=== PATIENT | male | born 1930 | race Caucasian/White ===

== ENCOUNTER 2016-12-28 18:23 | Inpatient (IN) | payer MEDICARE, MEDICAID ==
[2016-12-28 19:04] LABS: % BASOPHILS 0.2 % (0.0-2.0); % LYMPHOCYTES 15.1 % (20.0-50.0); % MONOCYTES 10.3 % (2.0-10.0); % NEUTROPHILS 71.4 % (40.0-80.0); HEMATOCRIT 32.6 % (41.0-60); HEMOGLOBIN 10.8 gm/dL (12-16); MEAN CELL VOLUME 87.4 fl (80-99); MEAN CORPUSCULAR HGB CONC 33.2 pg (28.0-36.0); MEAN PLATELET VOLUME 7.5 fl; NEUTROPHILE ABSOLUTE 4.5 Th/cmm (1.8-8.0); PLATELET COUNT 229 Th/cmm (150-400); RED BLOOD COUNT 3.72 Mil/cmm (3.80-5.80); RED CELL DISTRIBUTION WIDTH 13.4 % (11.5-20.0); WHITE BLOOD COUNT 6.2 Th/cmm (4.8-10.8)
--- NOTE | 2016-12-28 19:20 | ED Physician Chart ---
ED Chief Complaint/HPI - Patient Information Date Seen:: 12/28/16 Time Seen:: 18:30 Chief Complaint:: Agitation History of Present Illness:: onset x 2 days of agitation, aggression, and hostile behavior; no SIs, H/As, neck pain, trauma, C/P, SOB, Abd/Flank Pain, A/N/V/D/C, fever, chills, or urinary s/s Allergies:: Allergies Allergy/AdvReac Type Severity Reaction Status Date / Time No Known Allergies Allergy Verified 12/28/16 18:27 Vitals:: Vital Signs - 8 hr 12/28/16 18:31 Temp 98.2 F HR 67 RR 14 BP 106/77 O2 Sat % 100 Historian:: Patient, EMS Review:: Nurse's Note Reviewed, EMS run form Reviewed, Transfer documents Reviewed ED Review of Systems - Review of Systems General/Constitutional: Fever, No chills, No weight loss, No weakness, No diaphoresis, No edema, No loss of appetite Skin: No skin lesions, No rash, No bruising Head: No headache, No light-headedness Eyes: Acuity change, No pain, No diplopia ENT: No earache, No nasal drainage, No sore throat, No tinnitus Neck: No neck pain, No swelling, No thyromegaly, No stiffness, No mass noted Cardio Vascular: No chest pain, No palpitations, No PND, No orthopnea, No edema Pulmonary: SOB, Cough, No sputum, Wheezing GI: No nausea, No vomiting, No diarrhea, No pain, No melena, No hematochezia, No constipation, No hematemesis G/U: No dysuria, No frequency, No hematuria Musculoskeletal: No bone or joint pain, Back pain, No muscle pain Endocrine: No polyuria, No polydipsia Psychiatric: Prior psych history, Depression, Anxiety, No suicidal ideation Hematopoietic: No bruising, No lymphadenopathy Allergic/Immuno: No urticaria, No angioedema Neurological: No syncope, No focal symptoms, No weakness, No paresthesia, No headache, No seizure, No dizziness, Confusion, No vertigo ED Past Medical History - Past Medical History Obtainable: Yes Past Medical History: HTN, Asthma/COPD, Dyslipidemia Family History: Heart disease, Diabetes Melitus, HTN Social History: Non Smoker, No Alcohol, No Drug Use, Single, Care Facility Surgical History: other Psychiatricy History: Depression Medication: Reviewed Family Medical History - Family Member Mother Hx Family Cancer: No Hx Family Congestive Heart Failure: No Hx Family Hypertension: No Hx Family Diabetes: No Hx Family Seizures: No Hx Family HIV: No Hx Family COPD: No Hx Family Hepatitis: No ED Physical Exam - Physical Examination General/Constitutional: Awake, Well-developed, well-nourished, Alert, No distress, GCS 15, Non-toxic appearing, Ambulatory Head: Atraumatic Eyes: Lids, conjuctiva normal, PERRL, EOMI Skin: Nl inspection, No rash, No skin lesions, No ecchymosis, Well hydrated, No lymphadenopathy ENMT: External ears, nose nl, Nasal exam nl, Lips, teeth, gums nl Neck: Nontender, Full ROM w/o pain, No JVD, No nuchal rigidity, No bruit, No mass, No stridor Respiratory: Nl effort/Exclusion, Clear to Auscultation, No Wheeze/Rhonchi/Rales Cardio Vascular: RRR, No murmur, gallop, rubs, NL S1 S2 GI: No tenderness/rebounding/guarding, No organomegaly, No hernia, Normal BS's, Nondistended, No mass/bruits, No McBurney tenderness : No CVA tenderness Extremities: No tenderness or effusion, Full ROM, normal strength in all extremities, No edema, Normal digits & nails Neuro/Psych: Alert/oriented, DTR's symmetric, Normal sensory exam, Normal motor strength, Judgement/insight normal, Mood normal, Normal gait, No focal deficits Other Neuro/Psych comments:: + Psychomotor Agitation; no SIs Misc: Normal back, No paraspinal tenderness ED Labs/Radiology/EKG Results - Lab Results Results: Laboratory Tests 12/28/16 18:57 WBC 6.2 RBC 3.72 L Hgb 10.8 L Hct 32.6 L MCV 87.4 MCH 29.0 MCHC Differential 33.2 RDW 13.4 Plt Count 229 MPV 7.5 Neutrophils % 71.4 Lymphocytes % 15.1 L Monocytes % 10.3 H Eosinophils % 3.0 Basophils % 0.2 ED Septic Shock - . Is Septic Shock (SBP<90, OR Lactate>4 mmol\L) present?: No - <6hrs of presentation: Vital Signs: Vital Signs - 8 hr 10/18/17 18:31 Temp 98.2 F HR 67 RR 14 BP 106/77 O2 Sat % 100 ED Discharge Plan - Patient Disposition Instructions: Psychosis
[2016-12-28 19:22] LABS: ALB/GLOB RATIO 1.2 (1.0-1.8); ALKALINE PHOSPHATASE 78 U/L (34-104); ANION GAP 9.2 (7.0-16.0); BILIRUBIN,TOTAL 0.4 mg/dL (0.3-1.0); BUN - UREA NITROGEN 24 mg/dL (7-25); BUN/CREATININE RATIO 26.7; CALCIUM SERUM 8.9 mg/dL (8.6-10.3); CARBON DIOXIDE 27.8 mEq/L (21.0-31.0); CHLORIDE 101 mEq/L (98-107); CREATININE - SERUM 0.9 mg/dL (0.7-1.3); GLUCOSE 106 mg/dL (70-105); SGOT 17 U/L (13-39); SGPT/ALT 10 U/L (7-52); SODIUM SERUM 134 mEq/L (136-145)
[2016-12-28 19:27] LABS: ACETAMINOPHEN < 10.0 ug/mL (10.0-30.0); CHOLESTEROL 128 mg/dL (<200); TRIGLYCERIDES 58 mg/dL (<150)
[2016-12-28 21:36] VITALS: BP 144/79
[2016-12-28] MEDS ORDERED: Maalox 30 mL Cup PO PRN (21:41)
[2016-12-28 22:54] LABS: URINE BILIRUBIN NEGATIVE (NEGATIVE); URINE BLOOD NEGATIVE (NEGATIVE); URINE GLUCOSE (UA) NEGATIVE (NEGATIVE); URINE KETONE NEGATIVE (NEGATIVE); URINE PROTEIN NEGATIVE (NEGATIVE); URINE UROBILINOGEN 0.2 E.U./dL (0.2 - 1.0)
[2016-12-28 22:58] LABS: URINE COLOR YELLOW
[2016-12-28 22:59] LABS: URINE BACTERIA FEW /hpf (NONE SEEN); URINE EPITHELIAL CELLS OCCASIONAL /lpf (FEW); URINE RBC 0-2 /hpf (0-5); URINE WBC 0-2 /hpf (0-5)
[2016-12-28 23:15] LABS: AMPHETAMINE URINE NEGATIVE (NEGATIVE); BARBITURATES URINE NEGATIVE (NEGATIVE); METHADONE URINE NEGATIVE (NEGATIVE)
[2016-12-29] MEDS: Calcium Carb/Vit D 500 mg/200 U Tab PO SCH (09:21)
--- NOTE | 2016-12-29 11:47 | Psychosocial Evaluation ---
DATE OF SERVICE: 12/29/2016 IDENTIFYING INFORMATION: The patient is an 86-year-old male. CHIEF COMPLAINT: The patient was transferred from [facility] because of agitation. HISTORY OF PRESENT ILLNESS: The patient is a well-known case to me as I have been seeing him at [facility] for the past few months. The patient has been recently agitated, delusional, ____ screaming and yelling, and actually this morning, we had to give him medication because he was using all kind of curse words, was very agitated. He was hard to redirect. He was a poor historian. He is demented, confused, unable to participate in a meaningful conversation. PAST PSYCHIATRIC HISTORY: Dementia and agitation. FAMILY HISTORY: Unable to obtain because of psychosis. MEDICAL HISTORY: Deferred to the medical doctor. SOCIAL HISTORY: Unable to obtain because of psychosis. MENTAL STATUS EXAMINATION: The patient was appropriately dressed, not very well groomed. He was agitated, unable to participate in a meaningful conversation. Unable to tell me the date, where he is, why he is here. He has very poor insight. He seems to be responding to internal stimuli. His insight and judgment are impaired. He was able to be fed by the staff this morning, but he could not eat on his own. He slept well last night. IMPRESSION: AXIS I: Psychosis/mood disorder, nonspecified. Dementia. MEDICAL DIAGNOSES: Deferred to the medical doctor. His assets, he is accepting treatment. Negative poor coping skills. INITIAL TREATMENT PLAN: The patient was continued with medication. I have him on Ativan 0.5 mg and Ambien. I will be initiating him on Aricept, and if he continues to be agitated, I will be initiating him on antipsychotic. However, I will do that after staff sees how he is doing tomorrow, and we will continue with the patient in group therapy, milieu therapy, adjust medication as needed. JOB# [id number]
--- NOTE | 2016-12-29 19:20 | History & Physical ---
ADMIT DATE: 12/29/2016 HISTORY OF PRESENT ILLNESS: The patient is an 86-year-old male with long history of dementia, degenerative joint disease, chronic anemia, and chronic constipation, admitted to [facility] with acute agitation and aggressive behavior. The patient is a poor historian. The patient has a poor appetite. No fever, no chills, no nausea, and no vomiting. PAST MEDICAL HISTORY: Significant for dementia, chronic anemia, and degenerative joint disease. PAST SURGICAL HISTORY: No recent surgery. ALLERGIES: None. MEDICATIONS: Follow admission reconciliation. SOCIAL HISTORY: No smoking, no alcohol, and no drug. FAMILY HISTORY: Noncontributory. REVIEW OF SYSTEMS: IMMUNO SYSTEM: No history of chronic renal disorder. CARDIOVASCULAR SYSTEM: No coronary artery disease. ENDOCRINE SYSTEM: No diabetes or thyroid problem. GASTROINTESTINAL SYSTEM: Poor appetite. NEUROLOGICAL: He has history of dementia. MUSCULOSKELETAL SYSTEM: Degenerative joint disease. HEMATOLOGIC SYSTEM: He has chronic anemia. RESPIRATORY SYSTEM: No asthma. GENITOURINARY: He has no dysuria or hematuria. PHYSICAL EXAMINATION: GENERAL: He is awake, not coherent. VITAL SIGNS: Temperature 98.2, heart rate 82, and blood pressure 129/58. HEENT: Normocephalic. Pupils are reacting equal to light and accommodation. Sclerae clear. NECK: Supple. Negative for lymphadenopathy, JVD, or bruit. CHEST: Bilaterally normal. No rhonchi or wheezing. HEART: S1 and S2 normal, no gallop or rub. ABDOMEN: Soft, bowel sounds positive. EXTREMITIES: No edema. NEUROLOGIC: Awake and alert. Confused. No focal motor or sensory deficits. Cranial nerves 2-12 is intact. LABORATORY DATA: White blood count 6.2, hemoglobin 10.8, hematocrit 32.6, and platelets 229,000. Sodium , potassium 4, BUN 24, and creatinine 0.9. ASSESSMENT: 1. Anemia. 2. Degenerative joint disease. 3. Chronic constipation. 4. Dementia. PLAN: The patient admitted to the hospital under Dr. Smith's service. MEDICAL PROBLEMS TO BE ADDRESSED DURING HOSPITALIZATION: Psychosis, dementia. MEDICAL PROBLEMS ADDRESSED AT DISCHARGE: Anemia and degenerative joint disease. The patient ____ Thank you Dr. Smith for asking me to see your patient. JOB# [id number]
[2016-12-29] MEDS ORDERED: Non-Formulary Item 1 EA (Melatonin [Melatonin] 3 MG) PO SCH (21:00)
[2016-12-29] MEDS: Magnesium Hydroxide (MOM) 30 mL UDC PO PRN (21:24)
[2016-12-30] MEDS: Multivitamin w/ Minerals Tab PO SCH (10:03)
[2016-12-30] MEDS: Calcium Carb/Vit D 500 mg/200 U Tab PO SCH (10:03)
[2016-12-30] MEDS ORDERED: Calcium Carb/Vit D 500 mg/200 U Tab PO SCH (12:00)
--- NOTE | 2016-12-30 20:46 | Internal Medicine Prog Note ---
Internal Medicine Subjective - Subjective Patient seen and examined:: with staff (HE IS EATING BETTER.) Patient is:: awake, in wheelchair, confused Per staff patient has:: no adverse event Internal Medicine Objective - Results Result Diagrams: 12/28/16 18:57 12/28/16 18:57 Recent Labs: Laboratory Last Values WBC 6.2 Th/cmm (4.8-10.8) 12/28/16 18:57 RBC 3.72 Mil/cmm (3.80-5.80) L 12/28/16 18:57 Hgb 10.8 gm/dL (12-16) L 12/28/16 18:57 Hct 32.6 % (41.0-60) L 12/28/16 18:57 MCV 87.4 fl (80-99) 12/28/16 18:57 MCH 29.0 pg (27.0-31.0) 12/28/16 18:57 MCHC Differential 33.2 pg (28.0-36.0) 12/28/16 18:57 RDW 13.4 % (11.5-20.0) 12/28/16 18:57 Plt Count 229 Th/cmm (150-400) 12/28/16 18:57 MPV 7.5 fl 12/28/16 18:57 Neutrophils % 71.4 % (40.0-80.0) 12/28/16 18:57 Lymphocytes % 15.1 % (20.0-50.0) L 12/28/16 18:57 Monocytes % 10.3 % (2.0-10.0) H 12/28/16 18:57 Eosinophils % 3.0 % (0.0-5.0) 12/28/16 18:57 Basophils % 0.2 % (0.0-2.0) 12/28/16 18:57 Sodium 134 mEq/L (136-145) L 12/28/16 18:57 Potassium 4.0 mEq/L (3.5-5.1) 12/28/16 18:57 Chloride 101 mEq/L (98-107) 12/28/16 18:57 Carbon Dioxide 27.8 mEq/L (21.0-31.0) 12/28/16 18:57 Anion Gap 9.2 (7.0-16.0) 12/28/16 18:57 BUN 24 mg/dL (7-25) 12/28/16 18:57 Creatinine 0.9 mg/dL (0.7-1.3) 18 18:57 Est GFR ( Amer) TNP 12/28/16 18:57 Est GFR (Non-Af Amer) TNP 12/28/16 18:57 BUN/Creatinine Ratio 26.7 12/28/16 18:57 Glucose 106 mg/dL (70-105) H 12/28/16 18:57 Hemoglobin A1c % 5.6 % (4.0-6.0) 12/28/16 18:57 Calcium 8.9 mg/dL (8.6-10.3) 12/28/16 18:57 Total Bilirubin 0.4 mg/dL (0.3-1.0) 12/28/16 18:57 AST 17 U/L (13-39) 12/28/16 18:57 ALT 10 U/L (7-52) 12/28/16 18:57 Alkaline Phosphatase 78 U/L (34-104) 12/28/16 18:57 Total Protein 6.9 gm/dL (6.0-8.3) 12/28/16 18:57 Albumin 3.7 gm/dL (4.2-5.5) L 12/28/16 18:57 Globulin 3.2 gm/dL 12/28/16 18:57 Albumin/Globulin Ratio 1.2 (1.0-1.8) 18 18:57 Triglycerides 58 mg/dL (<150) 12/28/16 18:57 Cholesterol 128 mg/dL (<200) 18 18:57 LDL Cholesterol Direct 73 mg/dL (75-193) L 18 18:57 HDL Cholesterol 46 mg/dL (23-92) 12/28/16 18:57 TSH 1.98 uIU/ml (0.34-5.60) 18 18:57 Urine Source CLEAN C 12/28/16 19:56 Urine Color YELLOW 12/28/16 19:56 Urine Clarity CLEAR (CLEAR) 12/28/16 19:56 Urine pH 6.0 (4.6 - 8.0) 12/28/16 19:56 Ur Specific [place] 1.015 (1.005-1.030) 12/28/16 19:56 Urine Protein NEGATIVE mg/dL (NEGATIVE) 12/28/16 19:56 Urine Glucose (UA) NEGATIVE mg/dL (NEGATIVE) 12/28/16 19:56 Urine Ketones NEGATIVE mg/dL (NEGATIVE) 12/28/16 19:56 Urine Blood NEGATIVE (NEGATIVE) 12/28/16 19:56 Urine Nitrate NEGATIVE (NEGATIVE) 12/28/16 19:56 Urine Bilirubin NEGATIVE (NEGATIVE) 12/28/16 19:56 Urine Urobilinogen 0.2 E.U./dL (0.2 - 1.0) 12/28/16 19:56 Ur Leukocyte Esterase NEGATIVE (NEGATIVE) 12/28/16 19:56 Urine RBC 0-2 /hpf (0-5) H 12/28/16 19:56 Urine WBC 0-2 /hpf (0-5) 12/28/16 19:56 Ur Epithelial Cells OCCASIONAL /lpf (FEW) 12/28/16 19:56 Urine Bacteria FEW /hpf (NONE SEEN) 12/28/16 19:56 Salicylates < 25.0 mg/L (30.0-100.0) L 12/28/16 18:57 Urine Opiates Screen NEGATIVE (NEGATIVE) 12/28/16 19:56 Urine Methadone Screen NEGATIVE (NEGATIVE) 12/28/16 19:56 Acetaminophen < 10.0 ug/mL (10.0-30.0) L 12/28/16 18:57 Ur Barbiturates Screen NEGATIVE (NEGATIVE) 12/28/16 19:56 Ur Tricyclics Screen NEGATIVE (NEGATIVE) 12/28/16 19:56 Ur Phencyclidine Scrn NEGATIVE (NEGATIVE) 12/28/16 19:56 Amphetamines Screen NEGATIVE (NEGATIVE) 12/28/16 19:56 U Methamphetamines Scrn NEGATIVE (NEGATIVE) 12/28/16 19:56 U Benzodiazepines Scrn NEGATIVE (NEGATIVE) 12/28/16 19:56 U Cocaine Metab Screen NEGATIVE (NEGATIVE) 12/28/16 19:56 U Cannabinoids Screen NEGATIVE (NEGATIVE) 12/28/16 19:56 Ethyl Alcohol < 10 mg/dL (0-10) 12/28/16 18:57 - Physical Exam Vitals and I&O: Vital Signs Temp 97.9 F 12/30/16 20:00 Pulse 96 12/30/16 20:00 Resp 20 12/30/16 20:00 BP 108/54 12/30/16 20:00 Pulse Ox 95 12/30/16 20:00 Active Medications: Current Medications Acetaminophen (Tylenol) 650 mg PO Q4HR PRN PRN Reason: Pain (Mild) Stop: 02/27/17 17:47 Al Hydrox/Mg Hydrox/Simethicone (Maalox) 30 ml PO Q6H PRN PRN Reason: Dyspepsia Stop: 02/26/17 21:40 Calcium/Vitamin D (Oscal W/Vitamin D) 1 tab PO DAILY ISABEL Stop: 02/27/17 08:59 Last Admin: 12/30/16 10:03 Dose: 1 tab Cholecalciferol (Vitamin D3) 1,000 iu PO DAILY ISABEL Stop: 02/27/17 08:59 Last Admin: 12/30/16 10:03 Dose: 1,000 iu Docusate Sodium (Colace) 100 mg PO DAILY ISABEL Stop: 02/27/17 08:59 Last Admin: 12/30/16 10:03 Dose: 100 mg Donepezil HCl (Aricept) 5 mg PO HS ISABEL Stop: 02/27/17 20:59 Last Admin: 12/30/16 20:16 Dose: 5 mg Lorazepam (Ativan) 0.5 mg PO Q6HR PRN; Protocol PRN Reason: Agitation Stop: 02/28/17 10:56 Last Admin: 12/30/16 11:18 Dose: 0.5 mg Magnesium Hydroxide (Milk Of Magnesia) 30 ml PO HS PRN PRN Reason: Constipation Stop: 02/26/17 21:40 Last Admin: 12/29/16 21:24 Dose: 30 ml Megestrol Acetate (Megace) 400 mg PO BID ISABEL PRN Reason: Protocol Stop: 02/28/17 08:59 Last Admin: 12/30/16 18:11 Dose: 400 mg Risperidone (Risperdal) 0.25 mg PO BID ISABEL PRN Reason: Protocol Stop: 02/28/17 11:59 Last Admin: 12/30/16 18:11 Dose: 0.25 mg Zolpidem Tartrate (Ambien) 5 mg PO HS PRN PRN Reason: Insomnia Stop: 02/26/17 21:40 Last Admin: 12/30/16 00:51 Dose: 5 mg General: demented HEENT: NC/AT, PERRLA, EOMI, anicteric sclerae, throat clear Neck: Supple, No JVD, No thyromegaly, +2 carotid pulse wo bruit, No LAD Lungs: CTAB Cardiovascular: RRR, Normal S1, Normal S2, without murmur Abdomen: soft, non-tender, non-distended Extremities: clear Neurological: no change Internal Medicine Assmt/Plan - Assessment Assessment: 1.ANEMIA 2.DJD. 3.CONSTIPATION. 4.DEMENTIA. - Plan Plan: CONTINUE ON CURRENT MEDICATION AND DIET.
--- NOTE | 2016-12-31 00:33 | Progress Notes ---
DATE: 12/30/2016 Case was discussed with staff of the patient, reviewed records. The patient continues to be yelling and screaming. Continues to have poor insight. Continues to be unable to make safe plan for self-care. Continues to be unpredictable and impulsive, needing redirection. I will be initiating a small dose of Risperdal on the patient. He has no known drug allergies. I am going to initiate him on 0.25 mg twice a day. He is psychotic and responding to internal stimuli. I tried to discuss the side effects of the medication. We will continue to work with the patient in group therapy, milieu therapy, and adjust medication as needed. JOB# [id number]
[2016-12-31] MEDS: Calcium Carb/Vit D 500 mg/200 U Tab PO SCH (08:16)
[2016-12-31] MEDS: Multivitamin w/ Minerals Tab PO SCH (08:17)
--- NOTE | 2016-12-31 16:10 | Internal Medicine Prog Note ---
Internal Medicine Subjective - Subjective Service Date: 12/31/16 Patient seen and examined:: with staff (HE IS DOING WELL.) Patient is:: awake, in wheelchair, confused Per staff patient has:: no adverse event Internal Medicine Objective - Results Result Diagrams: 12/28/16 18:57 12/28/16 18:57 Recent Labs: Laboratory Last Values WBC 6.2 Th/cmm (4.8-10.8) 12/28/16 18:57 RBC 3.72 Mil/cmm (3.80-5.80) L 12/28/16 18:57 Hgb 10.8 gm/dL (12-16) L 12/28/16 18:57 Hct 32.6 % (41.0-60) L 12/28/16 18:57 MCV 87.4 fl (80-99) 12/28/16 18:57 MCH 29.0 pg (27.0-31.0) 12/28/16 18:57 MCHC Differential 33.2 pg (28.0-36.0) 12/28/16 18:57 RDW 13.4 % (11.5-20.0) 12/28/16 18:57 Plt Count 229 Th/cmm (150-400) 12/28/16 18:57 MPV 7.5 fl 12/28/16 18:57 Neutrophils % 71.4 % (40.0-80.0) 12/28/16 18:57 Lymphocytes % 15.1 % (20.0-50.0) L 12/28/16 18:57 Monocytes % 10.3 % (2.0-10.0) H 12/28/16 18:57 Eosinophils % 3.0 % (0.0-5.0) 12/28/16 18:57 Basophils % 0.2 % (0.0-2.0) 12/28/16 18:57 Sodium 134 mEq/L (136-145) L 12/28/16 18:57 Potassium 4.0 mEq/L (3.5-5.1) 12/28/16 18:57 Chloride 101 mEq/L (98-107) 12/28/16 18:57 Carbon Dioxide 27.8 mEq/L (21.0-31.0) 12/28/16 18:57 Anion Gap 9.2 (7.0-16.0) 12/28/16 18:57 BUN 24 mg/dL (7-25) 12/28/16 18:57 Creatinine 0.9 mg/dL (0.7-1.3) 18 18:57 Est GFR ( Amer) TNP 12/28/16 18:57 Est GFR (Non-Af Amer) TNP 12/28/16 18:57 BUN/Creatinine Ratio 26.7 12/28/16 18:57 Glucose 106 mg/dL (70-105) H 12/28/16 18:57 Hemoglobin A1c % 5.6 % (4.0-6.0) 12/28/16 18:57 Calcium 8.9 mg/dL (8.6-10.3) 12/28/16 18:57 Total Bilirubin 0.4 mg/dL (0.3-1.0) 12/28/16 18:57 AST 17 U/L (13-39) 12/28/16 18:57 ALT 10 U/L (7-52) 12/28/16 18:57 Alkaline Phosphatase 78 U/L (34-104) 12/28/16 18:57 Total Protein 6.9 gm/dL (6.0-8.3) 12/28/16 18:57 Albumin 3.7 gm/dL (4.2-5.5) L 12/28/16 18:57 Globulin 3.2 gm/dL 12/28/16 18:57 Albumin/Globulin Ratio 1.2 (1.0-1.8) 12/28/16 18:57 Triglycerides 58 mg/dL (<150) 12/28/16 18:57 Cholesterol 128 mg/dL (<200) 1817 18:57 LDL Cholesterol Direct 73 mg/dL (75-193) L 12/28/16 18:57 HDL Cholesterol 46 mg/dL (23-92) 12/28/16 18:57 TSH 1.98 uIU/ml (0.34-5.60) 1817 18:57 Urine Source CLEAN C 12/28/16 19:56 Urine Color YELLOW 12/28/16 19:56 Urine Clarity CLEAR (CLEAR) 12/28/16 19:56 Urine pH 6.0 (4.6 - 8.0) 12/28/16 19:56 Ur Specific [place] 1.015 (1.005-1.030) 12/28/16 19:56 Urine Protein NEGATIVE mg/dL (NEGATIVE) 12/28/16 19:56 Urine Glucose (UA) NEGATIVE mg/dL (NEGATIVE) 12/28/16 19:56 Urine Ketones NEGATIVE mg/dL (NEGATIVE) 12/28/16 19:56 Urine Blood NEGATIVE (NEGATIVE) 12/28/16 19:56 Urine Nitrate NEGATIVE (NEGATIVE) 12/28/16 19:56 Urine Bilirubin NEGATIVE (NEGATIVE) 12/28/16 19:56 Urine Urobilinogen 0.2 E.U./dL (0.2 - 1.0) 12/28/16 19:56 Ur Leukocyte Esterase NEGATIVE (NEGATIVE) 12/28/16 19:56 Urine RBC 0-2 /hpf (0-5) H 12/28/16 19:56 Urine WBC 0-2 /hpf (0-5) 12/28/16 19:56 Ur Epithelial Cells OCCASIONAL /lpf (FEW) 12/28/16 19:56 Urine Bacteria FEW /hpf (NONE SEEN) 12/28/16 19:56 Salicylates < 25.0 mg/L (30.0-100.0) L 12/28/16 18:57 Urine Opiates Screen NEGATIVE (NEGATIVE) 12/28/16 19:56 Urine Methadone Screen NEGATIVE (NEGATIVE) 12/28/16 19:56 Acetaminophen < 10.0 ug/mL (10.0-30.0) L 12/28/16 18:57 Ur Barbiturates Screen NEGATIVE (NEGATIVE) 12/28/16 19:56 Ur Tricyclics Screen NEGATIVE (NEGATIVE) 12/28/16 19:56 Ur Phencyclidine Scrn NEGATIVE (NEGATIVE) 12/28/16 19:56 Amphetamines Screen NEGATIVE (NEGATIVE) 12/28/16 19:56 U Methamphetamines Scrn NEGATIVE (NEGATIVE) 12/28/16 19:56 U Benzodiazepines Scrn NEGATIVE (NEGATIVE) 12/28/16 19:56 U Cocaine Metab Screen NEGATIVE (NEGATIVE) 12/28/16 19:56 U Cannabinoids Screen NEGATIVE (NEGATIVE) 12/28/16 19:56 Ethyl Alcohol < 10 mg/dL (0-10) 12/28/16 18:57 RPR NONREACTIVE (NONREACTIVE) 12/28/16 18:57 - Physical Exam Vitals and I&O: Vital Signs Temp 98.7 F 12/31/16 06:56 Pulse 66 12/31/16 06:56 Resp 20 12/31/16 08:00 BP 112/67 12/31/16 06:56 Pulse Ox 95 12/31/16 06:56 Active Medications: Current Medications Acetaminophen (Tylenol) 650 mg PO Q4HR PRN PRN Reason: Pain (Mild) Stop: 02/27/17 17:47 Al Hydrox/Mg Hydrox/Simethicone (Maalox) 30 ml PO Q6H PRN PRN Reason: Dyspepsia Stop: 02/26/17 21:40 Calcium/Vitamin D (Oscal W/Vitamin D) 1 tab PO DAILY ISABEL Stop: 02/27/17 08:59 Last Admin: 12/31/16 08:16 Dose: 1 tab Cholecalciferol (Vitamin D3) 1,000 iu PO DAILY ISABEL Stop: 02/27/17 08:59 Last Admin: 12/31/16 08:16 Dose: 1,000 iu Docusate Sodium (Colace) 100 mg PO DAILY ISABEL Stop: 02/27/17 08:59 Last Admin: 12/31/16 08:16 Dose: 100 mg Donepezil HCl (Aricept) 5 mg PO HS ISABEL Stop: 02/27/17 20:59 Last Admin: 12/30/16 20:16 Dose: 5 mg Lorazepam (Ativan) 1 mg PO Q6HR PRN; Protocol PRN Reason: Agitation Stop: 02/28/17 10:56 Magnesium Hydroxide (Milk Of Magnesia) 30 ml PO HS PRN PRN Reason: Constipation Stop: 02/26/17 21:40 Last Admin: 12/29/16 21:24 Dose: 30 ml Megestrol Acetate (Megace) 400 mg PO BID ISABEL PRN Reason: Protocol Stop: 02/28/17 08:59 Last Admin: 12/31/16 08:16 Dose: 400 mg Risperidone (Risperdal) 0.25 mg PO BID ISABEL PRN Reason: Protocol Stop: 02/28/17 11:59 Last Admin: 12/31/16 08:17 Dose: 0.25 mg Zolpidem Tartrate (Ambien) 5 mg PO HS PRN PRN Reason: Insomnia Stop: 02/26/17 21:40 Last Admin: 12/30/16 00:51 Dose: 5 mg General: demented HEENT: NC/AT, PERRLA, EOMI, anicteric sclerae, throat clear Neck: Supple, No JVD, No thyromegaly, +2 carotid pulse wo bruit, No LAD Lungs: CTAB Cardiovascular: RRR, Normal S1, Normal S2, without murmur Abdomen: soft, non-tender, non-distended Extremities: clear Neurological: no change Internal Medicine Assmt/Plan - Assessment Assessment: 1.ANEMIA 2.DJD. 3.CONSTIPATION. 4.DEMENTIA. - Plan Plan: CONTINUE ON CURRENT MEDICATION AND DIET.
--- NOTE | 2016-12-31 17:20 | Progress Notes ---
DATE: SUBJECTIVE: The patient was seen, chart reviewed, discussed with staff. The patient with continued screaming episodes, rambling nonsensically. The patient states he does not know why he is here. The patient was very aggressive when he came to the unit. Dr. Smith saw the patient yesterday noting that the patient remains unpredictable, impulsive, still with yelling and screaming episodes. Dr. Smith did initiate medications which were reviewed. No side effects noted. The patient is not a good historian, not really telling me where he is or why he is here. ASSESSMENT: The patient remains symptomatic, still yelling and screaming episodes, still requiring psychiatric hospitalization given his ongoing and acute symptoms. PLAN: We will continue to monitor. Medications were reviewed. We will follow up. JOB# [id number]
[2017-01-01] MEDS: Calcium Carb/Vit D 500 mg/200 U Tab PO SCH (09:49)
[2017-01-01] MEDS: Multivitamin w/ Minerals Tab PO SCH (09:49)
--- NOTE | 2017-01-01 12:24 | Progress Notes ---
DATE: SUBJECTIVE: The patient seen, chart reviewed, discussed with staff. The patient noted to be agitated, delusional, screaming, yelling, upon presentation still noted to be hyperverbal, screaming for help. It is unclear how staff can help him as he is not expressing why, still rambling nonsensically, continued screaming episodes were noted. The patient noted to be unpredictable, impulsive. The patient needing quite a bit of prompting, redirection. Medications were noted on the computer. The patient with poor insight, still with ongoing symptoms. ASSESSMENT: The patient remains symptomatic, not safe for a lower level of care. Currently on Risperdal, seems to be tolerating well. PLAN: We will continue to monitor and titrate medications. JOB# [id number]
--- NOTE | 2017-01-01 17:52 | Internal Medicine Prog Note ---
Internal Medicine Subjective - Subjective Service Date: 01/01/17 Patient seen and examined:: without staff Patient is:: awake, in wheelchair, confused Per staff patient has:: no adverse event Internal Medicine Objective - Results Result Diagrams: 12/28/16 18:57 12/28/16 18:57 Recent Labs: Laboratory Last Values WBC 6.2 Th/cmm (4.8-10.8) 12/28/16 18:57 RBC 3.72 Mil/cmm (3.80-5.80) L 12/28/16 18:57 Hgb 10.8 gm/dL (12-16) L 12/28/16 18:57 Hct 32.6 % (41.0-60) L 12/28/16 18:57 MCV 87.4 fl (80-99) 12/28/16 18:57 MCH 29.0 pg (27.0-31.0) 12/28/16 18:57 MCHC Differential 33.2 pg (28.0-36.0) 12/28/16 18:57 RDW 13.4 % (11.5-20.0) 12/28/16 18:57 Plt Count 229 Th/cmm (150-400) 12/28/16 18:57 MPV 7.5 fl 12/28/16 18:57 Neutrophils % 71.4 % (40.0-80.0) 12/28/16 18:57 Lymphocytes % 15.1 % (20.0-50.0) L 12/28/16 18:57 Monocytes % 10.3 % (2.0-10.0) H 12/28/16 18:57 Eosinophils % 3.0 % (0.0-5.0) 12/28/16 18:57 Basophils % 0.2 % (0.0-2.0) 12/28/16 18:57 Sodium 134 mEq/L (136-145) L 12/28/16 18:57 Potassium 4.0 mEq/L (3.5-5.1) 12/28/16 18:57 Chloride 101 mEq/L (98-107) 12/28/16 18:57 Carbon Dioxide 27.8 mEq/L (21.0-31.0) 12/28/16 18:57 Anion Gap 9.2 (7.0-16.0) 12/28/16 18:57 BUN 24 mg/dL (7-25) 17 18:57 Creatinine 0.9 mg/dL (0.7-1.3) 12/28/16 18:57 Est GFR ( Amer) TNP 12/28/16 18:57 Est GFR (Non-Af Amer) TNP 12/28/16 18:57 BUN/Creatinine Ratio 26.7 12/28/16 18:57 Glucose 106 mg/dL (70-105) H 12/28/16 18:57 Hemoglobin A1c % 5.6 % (4.0-6.0) 12/28/16 18:57 Calcium 8.9 mg/dL (8.6-10.3) 12/28/16 18:57 Total Bilirubin 0.4 mg/dL (0.3-1.0) 12/28/16 18:57 AST 17 U/L (13-39) 12/28/16 18:57 ALT 10 U/L (7-52) 12/28/16 18:57 Alkaline Phosphatase 78 U/L (34-104) 12/28/16 18:57 Total Protein 6.9 gm/dL (6.0-8.3) 12/28/16 18:57 Albumin 3.7 gm/dL (4.2-5.5) L 12/28/16 18:57 Globulin 3.2 gm/dL 18 18:57 Albumin/Globulin Ratio 1.2 (1.0-1.8) 18 18:57 Triglycerides 58 mg/dL (<150) 12/28/16 18:57 Cholesterol 128 mg/dL (<200) 1817 18:57 LDL Cholesterol Direct 73 mg/dL (75-193) L 1817 18:57 HDL Cholesterol 46 mg/dL (23-92) 18 18:57 TSH 1.98 uIU/ml (0.34-5.60) 18 18:57 Urine Source CLEAN C 12/28/16 19:56 Urine Color YELLOW 12/28/16 19:56 Urine Clarity CLEAR (CLEAR) 12/28/16 19:56 Urine pH 6.0 (4.6 - 8.0) 12/28/16 19:56 Ur Specific [place] 1.015 (1.005-1.030) 12/28/16 19:56 Urine Protein NEGATIVE mg/dL (NEGATIVE) 12/28/16 19:56 Urine Glucose (UA) NEGATIVE mg/dL (NEGATIVE) 12/28/16 19:56 Urine Ketones NEGATIVE mg/dL (NEGATIVE) 12/28/16 19:56 Urine Blood NEGATIVE (NEGATIVE) 12/28/16 19:56 Urine Nitrate NEGATIVE (NEGATIVE) 12/28/16 19:56 Urine Bilirubin NEGATIVE (NEGATIVE) 12/28/16 19:56 Urine Urobilinogen 0.2 E.U./dL (0.2 - 1.0) 12/28/16 19:56 Ur Leukocyte Esterase NEGATIVE (NEGATIVE) 12/28/16 19:56 Urine RBC 0-2 /hpf (0-5) H 12/28/16 19:56 Urine WBC 0-2 /hpf (0-5) 12/28/16 19:56 Ur Epithelial Cells OCCASIONAL /lpf (FEW) 12/28/16 19:56 Urine Bacteria FEW /hpf (NONE SEEN) 12/28/16 19:56 Salicylates < 25.0 mg/L (30.0-100.0) L 12/28/16 18:57 Urine Opiates Screen NEGATIVE (NEGATIVE) 12/28/16 19:56 Urine Methadone Screen NEGATIVE (NEGATIVE) 12/28/16 19:56 Acetaminophen < 10.0 ug/mL (10.0-30.0) L 12/28/16 18:57 Ur Barbiturates Screen NEGATIVE (NEGATIVE) 12/28/16 19:56 Ur Tricyclics Screen NEGATIVE (NEGATIVE) 12/28/16 19:56 Ur Phencyclidine Scrn NEGATIVE (NEGATIVE) 12/28/16 19:56 Amphetamines Screen NEGATIVE (NEGATIVE) 12/28/16 19:56 U Methamphetamines Scrn NEGATIVE (NEGATIVE) 12/28/16 19:56 U Benzodiazepines Scrn NEGATIVE (NEGATIVE) 12/28/16 19:56 U Cocaine Metab Screen NEGATIVE (NEGATIVE) 12/28/16 19:56 U Cannabinoids Screen NEGATIVE (NEGATIVE) 12/28/16 19:56 Ethyl Alcohol < 10 mg/dL (0-10) 12/28/16 18:57 RPR NONREACTIVE (NONREACTIVE) 12/28/16 18:57 - Physical Exam Vitals and I&O: Vital Signs Temp 97.9 F 01/01/17 06:13 Pulse 87 01/01/17 06:13 Resp 18 01/01/17 06:13 BP 103/56 01/01/17 06:13 Pulse Ox 97 01/01/17 06:13 Active Medications: Current Medications Acetaminophen (Tylenol) 650 mg PO Q4HR PRN PRN Reason: Pain (Mild) Stop: 02/27/17 17:47 Al Hydrox/Mg Hydrox/Simethicone (Maalox) 30 ml PO Q6H PRN PRN Reason: Dyspepsia Stop: 02/26/17 21:40 Calcium/Vitamin D (Oscal W/Vitamin D) 1 tab PO DAILY ISABEL Stop: 02/27/17 08:59 Last Admin: 01/01/17 09:49 Dose: 1 tab Cholecalciferol (Vitamin D3) 1,000 iu PO DAILY ISABEL Stop: 02/27/17 08:59 Last Admin: 01/01/17 09:50 Dose: 1,000 iu Docusate Sodium (Colace) 100 mg PO DAILY ISABEL Stop: 02/27/17 08:59 Last Admin: 01/01/17 09:49 Dose: 100 mg Donepezil HCl (Aricept) 5 mg PO HS ISABEL Stop: 02/27/17 20:59 Last Admin: 12/31/16 21:07 Dose: 5 mg Lorazepam (Ativan) 1 mg PO Q6HR PRN; Protocol PRN Reason: Agitation Stop: 02/28/17 10:56 Last Admin: 01/01/17 17:13 Dose: 1 mg Magnesium Hydroxide (Milk Of Magnesia) 30 ml PO HS PRN PRN Reason: Constipation Stop: 02/26/17 21:40 Last Admin: 12/29/16 21:24 Dose: 30 ml Megestrol Acetate (Megace) 400 mg PO BID ISABEL PRN Reason: Protocol Stop: 02/28/17 08:59 Last Admin: 01/01/17 17:13 Dose: 400 mg Risperidone (Risperdal) 0.25 mg PO BID ISABEL PRN Reason: Protocol Stop: 02/28/17 11:59 Last Admin: 01/01/17 17:13 Dose: 0.25 mg Zolpidem Tartrate (Ambien) 5 mg PO HS PRN PRN Reason: Insomnia Stop: 02/26/17 21:40 Last Admin: 12/31/16 21:08 Dose: 5 mg General: demented HEENT: NC/AT, PERRLA, EOMI, anicteric sclerae, throat clear Neck: Supple, No JVD, No thyromegaly, +2 carotid pulse wo bruit, No LAD Lungs: CTAB Cardiovascular: RRR, Normal S1, Normal S2, without murmur Abdomen: soft, non-tender, non-distended Extremities: clear Neurological: no change Internal Medicine Assmt/Plan - Assessment Assessment: 1.ANEMIA 2.DJD. 3.CONSTIPATION. 4.DEMENTIA. - Plan Plan: CONTINUE ON CURRENT MEDICATION AND DIET.
[2017-01-02] MEDS: Multivitamin w/ Minerals Tab PO SCH (09:15)
[2017-01-02] MEDS: Calcium Carb/Vit D 500 mg/200 U Tab PO SCH (09:15)
--- NOTE | 2017-01-02 17:34 | Internal Medicine Prog Note ---
Internal Medicine Subjective - Subjective Service Date: 01/02/17 Patient seen and examined:: without staff Patient is:: awake, in wheelchair, confused Per staff patient has:: no adverse event Internal Medicine Objective - Results Result Diagrams: 12/28/16 18:57 12/28/16 18:57 Recent Labs: Laboratory Last Values WBC 6.2 Th/cmm (4.8-10.8) 12/28/16 18:57 RBC 3.72 Mil/cmm (3.80-5.80) L 12/28/16 18:57 Hgb 10.8 gm/dL (12-16) L 12/28/16 18:57 Hct 32.6 % (41.0-60) L 12/28/16 18:57 MCV 87.4 fl (80-99) 12/28/16 18:57 MCH 29.0 pg (27.0-31.0) 12/28/16 18:57 MCHC Differential 33.2 pg (28.0-36.0) 12/28/16 18:57 RDW 13.4 % (11.5-20.0) 12/28/16 18:57 Plt Count 229 Th/cmm (150-400) 12/28/16 18:57 MPV 7.5 fl 12/28/16 18:57 Neutrophils % 71.4 % (40.0-80.0) 12/28/16 18:57 Lymphocytes % 15.1 % (20.0-50.0) L 12/28/16 18:57 Monocytes % 10.3 % (2.0-10.0) H 12/28/16 18:57 Eosinophils % 3.0 % (0.0-5.0) 12/28/16 18:57 Basophils % 0.2 % (0.0-2.0) 12/28/16 18:57 Sodium 134 mEq/L (136-145) L 12/28/16 18:57 Potassium 4.0 mEq/L (3.5-5.1) 12/28/16 18:57 Chloride 101 mEq/L (98-107) 12/28/16 18:57 Carbon Dioxide 27.8 mEq/L (21.0-31.0) 12/28/16 18:57 Anion Gap 9.2 (7.0-16.0) 12/28/16 18:57 BUN 24 mg/dL (7-25) 17 18:57 Creatinine 0.9 mg/dL (0.7-1.3) 12/28/16 18:57 Est GFR ( Amer) TNP 12/28/16 18:57 Est GFR (Non-Af Amer) TNP 12/28/16 18:57 BUN/Creatinine Ratio 26.7 12/28/16 18:57 Glucose 106 mg/dL (70-105) H 12/28/16 18:57 Hemoglobin A1c % 5.6 % (4.0-6.0) 12/28/16 18:57 Calcium 8.9 mg/dL (8.6-10.3) 12/28/16 18:57 Total Bilirubin 0.4 mg/dL (0.3-1.0) 12/28/16 18:57 AST 17 U/L (13-39) 12/28/16 18:57 ALT 10 U/L (7-52) 12/28/16 18:57 Alkaline Phosphatase 78 U/L (34-104) 12/28/16 18:57 Total Protein 6.9 gm/dL (6.0-8.3) 12/28/16 18:57 Albumin 3.7 gm/dL (4.2-5.5) L 12/28/16 18:57 Globulin 3.2 gm/dL 18 18:57 Albumin/Globulin Ratio 1.2 (1.0-1.8) 18 18:57 Triglycerides 58 mg/dL (<150) 12/28/16 18:57 Cholesterol 128 mg/dL (<200) 1817 18:57 LDL Cholesterol Direct 73 mg/dL (75-193) L 1817 18:57 HDL Cholesterol 46 mg/dL (23-92) 18 18:57 TSH 1.98 uIU/ml (0.34-5.60) 18 18:57 Urine Source CLEAN C 12/28/16 19:56 Urine Color YELLOW 12/28/16 19:56 Urine Clarity CLEAR (CLEAR) 12/28/16 19:56 Urine pH 6.0 (4.6 - 8.0) 12/28/16 19:56 Ur Specific [place] 1.015 (1.005-1.030) 12/28/16 19:56 Urine Protein NEGATIVE mg/dL (NEGATIVE) 12/28/16 19:56 Urine Glucose (UA) NEGATIVE mg/dL (NEGATIVE) 12/28/16 19:56 Urine Ketones NEGATIVE mg/dL (NEGATIVE) 12/28/16 19:56 Urine Blood NEGATIVE (NEGATIVE) 12/28/16 19:56 Urine Nitrate NEGATIVE (NEGATIVE) 12/28/16 19:56 Urine Bilirubin NEGATIVE (NEGATIVE) 12/28/16 19:56 Urine Urobilinogen 0.2 E.U./dL (0.2 - 1.0) 12/28/16 19:56 Ur Leukocyte Esterase NEGATIVE (NEGATIVE) 12/28/16 19:56 Urine RBC 0-2 /hpf (0-5) H 12/28/16 19:56 Urine WBC 0-2 /hpf (0-5) 12/28/16 19:56 Ur Epithelial Cells OCCASIONAL /lpf (FEW) 12/28/16 19:56 Urine Bacteria FEW /hpf (NONE SEEN) 12/28/16 19:56 Salicylates < 25.0 mg/L (30.0-100.0) L 12/28/16 18:57 Urine Opiates Screen NEGATIVE (NEGATIVE) 12/28/16 19:56 Urine Methadone Screen NEGATIVE (NEGATIVE) 12/28/16 19:56 Acetaminophen < 10.0 ug/mL (10.0-30.0) L 12/28/16 18:57 Ur Barbiturates Screen NEGATIVE (NEGATIVE) 12/28/16 19:56 Ur Tricyclics Screen NEGATIVE (NEGATIVE) 12/28/16 19:56 Ur Phencyclidine Scrn NEGATIVE (NEGATIVE) 12/28/16 19:56 Amphetamines Screen NEGATIVE (NEGATIVE) 12/28/16 19:56 U Methamphetamines Scrn NEGATIVE (NEGATIVE) 12/28/16 19:56 U Benzodiazepines Scrn NEGATIVE (NEGATIVE) 12/28/16 19:56 U Cocaine Metab Screen NEGATIVE (NEGATIVE) 12/28/16 19:56 U Cannabinoids Screen NEGATIVE (NEGATIVE) 12/28/16 19:56 Ethyl Alcohol < 10 mg/dL (0-10) 12/28/16 18:57 RPR NONREACTIVE (NONREACTIVE) 12/28/16 18:57 - Physical Exam Vitals and I&O: Vital Signs Temp 98.1 F 01/02/17 15:33 Pulse 92 01/02/17 15:33 Resp 20 01/02/17 15:33 BP 102/47 01/02/17 15:33 Pulse Ox 95 01/02/17 15:33 Intake & Output 01/01/17 01/02/17 01/02/17 18:59 06:59 18:59 Intake Total 120 Balance 120 Intake: Oral 120 Other: # Voids 3 Active Medications: Current Medications Acetaminophen (Tylenol) 650 mg PO Q4HR PRN PRN Reason: Pain (Mild) Stop: 02/27/17 17:47 Al Hydrox/Mg Hydrox/Simethicone (Maalox) 30 ml PO Q6H PRN PRN Reason: Dyspepsia Stop: 02/26/17 21:40 Calcium/Vitamin D (Oscal W/Vitamin D) 1 tab PO DAILY ISABEL Stop: 02/27/17 08:59 Last Admin: 01/02/17 09:15 Dose: 1 tab Cholecalciferol (Vitamin D3) 1,000 iu PO DAILY ISABEL Stop: 02/27/17 08:59 Last Admin: 01/02/17 09:15 Dose: 1,000 iu Docusate Sodium (Colace) 100 mg PO DAILY ISABEL Stop: 02/27/17 08:59 Last Admin: 01/02/17 09:15 Dose: 100 mg Donepezil HCl (Aricept) 5 mg PO HS ISABEL Stop: 02/27/17 20:59 Last Admin: 01/01/17 20:36 Dose: 5 mg Lorazepam (Ativan) 1 mg PO Q6HR PRN; Protocol PRN Reason: Agitation Stop: 02/28/17 10:56 Last Admin: 01/02/17 03:07 Dose: 1 mg Magnesium Hydroxide (Milk Of Magnesia) 30 ml PO HS PRN PRN Reason: Constipation Stop: 02/26/17 21:40 Last Admin: 12/29/16 21:24 Dose: 30 ml Megestrol Acetate (Megace) 400 mg PO BID ISABEL PRN Reason: Protocol Stop: 02/28/17 08:59 Last Admin: 01/02/17 09:15 Dose: 400 mg Risperidone (Risperdal) 0.5 mg PO BID ISABEL PRN Reason: Protocol Stop: 03/03/17 12:41 Zolpidem Tartrate (Ambien) 5 mg PO HS PRN PRN Reason: Insomnia Stop: 02/26/17 21:40 Last Admin: 01/01/17 20:37 Dose: 5 mg General: demented HEENT: NC/AT, PERRLA, EOMI, anicteric sclerae, throat clear Neck: Supple, No JVD, No thyromegaly, +2 carotid pulse wo bruit, No LAD Lungs: CTAB Cardiovascular: RRR, Normal S1, Normal S2, without murmur Abdomen: soft, non-tender, non-distended Extremities: clear Neurological: no change Internal Medicine Assmt/Plan - Assessment Assessment: 1.ANEMIA 2.DJD. 3.CONSTIPATION. 4.DEMENTIA. - Plan Plan: CONTINUE ON CURRENT MEDICATION AND DIET. Nutritional Asmnt/Malnutr-PDOC - Dietary Evaluation Malnutrition Findings (Please click <Entered> for more info): Nutritional Asmnt/Malnutrition Start: 01/02/17 11: 56 Text: Status: Complete Freq: Document 01/02/17 11:56 [email or web address] (Rec: 01/02/17 12:10 [email or web address]) Nutritional Asmnt/Malnutrition Patient General Information Nutritional Screening Moderate Risk Screening Diagnosis psychosis Pertinent Medical Hx/Surgical Hx dementia, degenerative joint disease, anemia, legally blind Subjective Information Pt is very demented, inappropriate for interview. 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 Current Diet Order/ Nutrition Support JOSÉ, mechanical soft, ground. Boost BID. Patient / S.O Not Indicated Pertinent Medications calcium, vitamin d, megace Pertinent Labs 01/02: Na: 134, glucose: 106, hgbac1: 5.6 Nutritional Hx/Data Height 1.75 m Height (Calculated Centimeters) 175.3 Current Weight (lbs) 68.039 kg Weight (Calculated Kilograms) 68.0 Weight (Calculated Grams) 52134.9 [place] Body Weight 160 lbs % [place] Body Weight 94 Weight Status Approriate GI Symptoms GI Symptoms Constipation Difficult in: Chewing Food Allergies No Skin Integrity/Comment: intact Current %PO Fair (50-74%) Estimated Nutritional Goals BEE in Kcals: Using Current wt Calories/Kcals/Kg 25-30 Kcals Calculated [id number] Protein: Using Current wt Protein g/k Protein Calculated 68 Fluid: ml 1700 Nutritional Problem No current Nutrition Prob Problem no nutrition diagnosis at this time Etiology n/a Signs/Symptoms: n/a Malnutrition Alert Protein-Calorie Malnutrition N/A Is there a minimum of two criteria No selected? Query Text:Check all the applicable criteria. A minimum of two criteria are recommended for diagnosis of either severe or non-severe malnutrition. Malnutrition Related to Morbid Obesity Malnutrition related to morbid obesity No Intervention/Recommendation Comments Continue JOSÉ, mechanical soft diet with Boost BID. Add daily MVI for variable intake. Expected Outcomes/Goals Expected Outcomes/Goals PO intake >50% Pt to consume at least 1 serving of supplement/day Wt stability Skin to remain intact Labs: WNL Physician Parameters for PEM Normal Weight % 90% - 110% (Normal) Body Mass Index (BMI) 19 - 24 (Normal)
--- NOTE | 2017-01-03 00:45 | Progress Notes ---
DATE: 01/02/2017 Case was discussed with staff of the patient, reviewed records. The patient continues to be easily agitated, confused, continues to be unable to make safe plan for self-care. Continues to be unpredictable, impulsive, needing redirection. He is compliant with the medications. No side effects, no sedation, no nausea, no extrapyramidal symptoms. I will be increasing the Risperdal to 0.5 mg at bedtime. He is already on Aricept 5 mg at bedtime. We will continue to work with the patient in group therapy, milieu therapy, adjust medication as needed. JOB# [id number]
[2017-01-03] MEDS: Multivitamin w/ Minerals Tab PO SCH (10:28)
[2017-01-03] MEDS: Calcium Carb/Vit D 500 mg/200 U Tab PO SCH (10:29)
--- NOTE | 2017-01-03 10:49 | Internal Medicine Prog Note ---
Internal Medicine Subjective - Subjective Service Date: 01/03/17 Patient seen and examined:: without staff Patient is:: awake, in wheelchair, confused Per staff patient has:: no adverse event Internal Medicine Objective - Results Result Diagrams: 12/28/16 18:57 12/28/16 18:57 Recent Labs: Laboratory Last Values WBC 6.2 Th/cmm (4.8-10.8) 12/28/16 18:57 RBC 3.72 Mil/cmm (3.80-5.80) L 12/28/16 18:57 Hgb 10.8 gm/dL (12-16) L 12/28/16 18:57 Hct 32.6 % (41.0-60) L 12/28/16 18:57 MCV 87.4 fl (80-99) 12/28/16 18:57 MCH 29.0 pg (27.0-31.0) 12/28/16 18:57 MCHC Differential 33.2 pg (28.0-36.0) 12/28/16 18:57 RDW 13.4 % (11.5-20.0) 12/28/16 18:57 Plt Count 229 Th/cmm (150-400) 12/28/16 18:57 MPV 7.5 fl 12/28/16 18:57 Neutrophils % 71.4 % (40.0-80.0) 12/28/16 18:57 Lymphocytes % 15.1 % (20.0-50.0) L 12/28/16 18:57 Monocytes % 10.3 % (2.0-10.0) H 12/28/16 18:57 Eosinophils % 3.0 % (0.0-5.0) 12/28/16 18:57 Basophils % 0.2 % (0.0-2.0) 12/28/16 18:57 Sodium 134 mEq/L (136-145) L 12/28/16 18:57 Potassium 4.0 mEq/L (3.5-5.1) 12/28/16 18:57 Chloride 101 mEq/L (98-107) 12/28/16 18:57 Carbon Dioxide 27.8 mEq/L (21.0-31.0) 12/28/16 18:57 Anion Gap 9.2 (7.0-16.0) 12/28/16 18:57 BUN 24 mg/dL (7-25) 17 18:57 Creatinine 0.9 mg/dL (0.7-1.3) 12/28/16 18:57 Est GFR ( Amer) TNP 12/28/16 18:57 Est GFR (Non-Af Amer) TNP 12/28/16 18:57 BUN/Creatinine Ratio 26.7 12/28/16 18:57 Glucose 106 mg/dL (70-105) H 12/28/16 18:57 Hemoglobin A1c % 5.6 % (4.0-6.0) 12/28/16 18:57 Calcium 8.9 mg/dL (8.6-10.3) 12/28/16 18:57 Total Bilirubin 0.4 mg/dL (0.3-1.0) 12/28/16 18:57 AST 17 U/L (13-39) 12/28/16 18:57 ALT 10 U/L (7-52) 12/28/16 18:57 Alkaline Phosphatase 78 U/L (34-104) 12/28/16 18:57 Total Protein 6.9 gm/dL (6.0-8.3) 12/28/16 18:57 Albumin 3.7 gm/dL (4.2-5.5) L 12/28/16 18:57 Globulin 3.2 gm/dL 18 18:57 Albumin/Globulin Ratio 1.2 (1.0-1.8) 18 18:57 Triglycerides 58 mg/dL (<150) 12/28/16 18:57 Cholesterol 128 mg/dL (<200) 1817 18:57 LDL Cholesterol Direct 73 mg/dL (75-193) L 1817 18:57 HDL Cholesterol 46 mg/dL (23-92) 18 18:57 TSH 1.98 uIU/ml (0.34-5.60) 18 18:57 Urine Source CLEAN C 12/28/16 19:56 Urine Color YELLOW 12/28/16 19:56 Urine Clarity CLEAR (CLEAR) 12/28/16 19:56 Urine pH 6.0 (4.6 - 8.0) 12/28/16 19:56 Ur Specific [place] 1.015 (1.005-1.030) 12/28/16 19:56 Urine Protein NEGATIVE mg/dL (NEGATIVE) 12/28/16 19:56 Urine Glucose (UA) NEGATIVE mg/dL (NEGATIVE) 12/28/16 19:56 Urine Ketones NEGATIVE mg/dL (NEGATIVE) 12/28/16 19:56 Urine Blood NEGATIVE (NEGATIVE) 12/28/16 19:56 Urine Nitrate NEGATIVE (NEGATIVE) 12/28/16 19:56 Urine Bilirubin NEGATIVE (NEGATIVE) 12/28/16 19:56 Urine Urobilinogen 0.2 E.U./dL (0.2 - 1.0) 12/28/16 19:56 Ur Leukocyte Esterase NEGATIVE (NEGATIVE) 12/28/16 19:56 Urine RBC 0-2 /hpf (0-5) H 12/28/16 19:56 Urine WBC 0-2 /hpf (0-5) 12/28/16 19:56 Ur Epithelial Cells OCCASIONAL /lpf (FEW) 12/28/16 19:56 Urine Bacteria FEW /hpf (NONE SEEN) 12/28/16 19:56 Salicylates < 25.0 mg/L (30.0-100.0) L 12/28/16 18:57 Urine Opiates Screen NEGATIVE (NEGATIVE) 12/28/16 19:56 Urine Methadone Screen NEGATIVE (NEGATIVE) 12/28/16 19:56 Acetaminophen < 10.0 ug/mL (10.0-30.0) L 12/28/16 18:57 Ur Barbiturates Screen NEGATIVE (NEGATIVE) 12/28/16 19:56 Ur Tricyclics Screen NEGATIVE (NEGATIVE) 12/28/16 19:56 Ur Phencyclidine Scrn NEGATIVE (NEGATIVE) 12/28/16 19:56 Amphetamines Screen NEGATIVE (NEGATIVE) 12/28/16 19:56 U Methamphetamines Scrn NEGATIVE (NEGATIVE) 12/28/16 19:56 U Benzodiazepines Scrn NEGATIVE (NEGATIVE) 12/28/16 19:56 U Cocaine Metab Screen NEGATIVE (NEGATIVE) 12/28/16 19:56 U Cannabinoids Screen NEGATIVE (NEGATIVE) 12/28/16 19:56 Ethyl Alcohol < 10 mg/dL (0-10) 12/28/16 18:57 RPR NONREACTIVE (NONREACTIVE) 12/28/16 18:57 - Physical Exam Vitals and I&O: Vital Signs Temp 98.0 F 01/03/17 06:43 Pulse 96 01/03/17 06:43 Resp 19 01/03/17 06:43 BP 114/61 01/03/17 06:43 Pulse Ox 98 01/03/17 06:43 Intake & Output 01/02/17 01/03/17 01/03/17 18:59 06:59 18:59 Intake Total 870 Balance 870 Intake: Oral 870 Other: # Voids 2 # Bowel Movements 0 Active Medications: Current Medications Acetaminophen (Tylenol) 650 mg PO Q4HR PRN PRN Reason: Pain (Mild) Stop: 02/27/17 17:47 Last Admin: 01/03/17 03:50 Dose: 650 mg Al Hydrox/Mg Hydrox/Simethicone (Maalox) 30 ml PO Q6H PRN PRN Reason: Dyspepsia Stop: 02/26/17 21:40 Calcium/Vitamin D (Oscal W/Vitamin D) 1 tab PO DAILY ISABEL Stop: 02/27/17 08:59 Last Admin: 01/03/17 10:29 Dose: 1 tab Cholecalciferol (Vitamin D3) 1,000 iu PO DAILY ISABEL Stop: 02/27/17 08:59 Last Admin: 01/03/17 10:28 Dose: 1,000 iu Docusate Sodium (Colace) 100 mg PO DAILY ISABEL Stop: 02/27/17 08:59 Last Admin: 01/03/17 10:28 Dose: 100 mg Donepezil HCl (Aricept) 5 mg PO HS ISABEL Stop: 02/27/17 20:59 Last Admin: 01/02/17 21:31 Dose: 5 mg Lorazepam (Ativan) 1 mg PO Q6HR PRN; Protocol PRN Reason: Agitation Stop: 02/28/17 10:56 Last Admin: 01/03/17 10:28 Dose: 1 mg Magnesium Hydroxide (Milk Of Magnesia) 30 ml PO HS PRN PRN Reason: Constipation Stop: 02/26/17 21:40 Last Admin: 12/29/16 21:24 Dose: 30 ml Megestrol Acetate (Megace) 400 mg PO BID ISABEL PRN Reason: Protocol Stop: 02/28/17 08:59 Last Admin: 01/03/17 10:28 Dose: 400 mg Risperidone (Risperdal) 0.5 mg PO BID ISABEL PRN Reason: Protocol Stop: 03/03/17 12:41 Last Admin: 01/03/17 10:28 Dose: 0.5 mg Zolpidem Tartrate (Ambien) 5 mg PO HS PRN PRN Reason: Insomnia Stop: 02/26/17 21:40 Last Admin: 01/02/17 23:30 Dose: 5 mg General: demented HEENT: NC/AT, PERRLA, EOMI, anicteric sclerae, throat clear Neck: Supple, No JVD, No thyromegaly, +2 carotid pulse wo bruit, No LAD Lungs: CTAB Cardiovascular: RRR, Normal S1, Normal S2, without murmur Abdomen: soft, non-tender, non-distended Extremities: clear Neurological: no change Internal Medicine Assmt/Plan - Assessment Assessment: 1.ANEMIA 2.DJD. 3.CONSTIPATION. 4.DEMENTIA. - Plan Plan: CONTINUE ON CURRENT MEDICATION AND DIET. Nutritional Asmnt/Malnutr-PDOC - Dietary Evaluation Malnutrition Findings (Please click <Entered> for more info): Nutritional Asmnt/Malnutrition Start: 01/02/17 11: 56 Text: Status: Complete Freq: Document 01/02/17 11:56 [email or web address] (Rec: 01/02/17 12:10 [email or web address] [email or web address] Nutritional Asmnt/Malnutrition Patient General Information Nutritional Screening Moderate Risk Screening Diagnosis psychosis Pertinent Medical Hx/Surgical Hx dementia, degenerative joint disease, anemia, legally blind Subjective Information Pt is very demented, inappropriate for interview. Per H&P, pt was not eating much [employer], but now is eating 75 % of meals with total assist. Current Diet Order/ Nutrition Support JOSÉ, mechanical soft, ground. Boost BID. Patient / S.O Not Indicated Pertinent Medications calcium, vitamin d, megace Pertinent Labs 01/02: Na: 134, glucose: 106, hgbac1: 5.6 Nutritional Hx/Data Height 1.75 m Height (Calculated Centimeters) 175.3 Current Weight (lbs) 68.039 kg Weight (Calculated Kilograms) 68.0 Weight (Calculated Grams) 92110.9 [place] Body Weight 160 lbs % [place] Body Weight 94 Weight Status Approriate GI Symptoms GI Symptoms Constipation Difficult in: Chewing Food Allergies No Skin Integrity/Comment: intact Current %PO Fair (50-74%) Estimated Nutritional Goals BEE in Kcals: Using Current wt Calories/Kcals/Kg 25-30 Kcals Calculated 1944-6344 Protein: Using Current wt Protein g/k Protein Calculated 68 Fluid: ml 1700 Nutritional Problem No current Nutrition Prob Problem no nutrition diagnosis at this time Etiology n/a Signs/Symptoms: n/a Malnutrition Alert Protein-Calorie Malnutrition N/A Is there a minimum of two criteria No selected? Query Text:Check all the applicable criteria. A minimum of two criteria are recommended for diagnosis of either severe or non-severe malnutrition. Malnutrition Related to Morbid Obesity Malnutrition related to morbid obesity No Intervention/Recommendation Comments Continue JOSÉ, mechanical soft diet with Boost BID. Add daily MVI for variable intake. Expected Outcomes/Goals Expected Outcomes/Goals PO intake >50% Pt to consume at least 1 serving of supplement/day Wt stability Skin to remain intact Labs: WNL Physician Parameters for PEM Normal Weight % 90% - 110% (Normal) Body Mass Index (BMI) 19 - 24 (Normal)
--- NOTE | 2017-01-04 00:09 | Progress Notes ---
DATE: 01/03/2017 Case was discussed with staff of the patient, reviewed records. The patient continues to be confused, easily agitated, continues to be unpredictable and impulsive. I did increase Risperdal dose yesterday. No side effects, no sedation, no nausea, no extrapyramidal symptoms. We will continue to work with the patient in group therapy, milieu therapy and adjust the medications as needed. [facility]# [id number]
[2017-01-04] MEDS: Multivitamin w/ Minerals Tab PO SCH (09:41)
[2017-01-04] MEDS: Calcium Carb/Vit D 500 mg/200 U Tab PO SCH (09:41)
--- NOTE | 2017-01-04 10:44 | Internal Medicine Prog Note ---
Internal Medicine Subjective - Subjective Service Date: 01/04/17 Patient seen and examined:: with staff (HE DENIES ANY PAIN.) Patient is:: awake, in wheelchair, confused Per staff patient has:: no adverse event Internal Medicine Objective - Results Result Diagrams: 12/28/16 18:57 12/28/16 18:57 Recent Labs: Laboratory Last Values WBC 6.2 Th/cmm (4.8-10.8) 12/28/16 18:57 RBC 3.72 Mil/cmm (3.80-5.80) L 12/28/16 18:57 Hgb 10.8 gm/dL (12-16) L 12/28/16 18:57 Hct 32.6 % (41.0-60) L 12/28/16 18:57 MCV 87.4 fl (80-99) 12/28/16 18:57 MCH 29.0 pg (27.0-31.0) 12/28/16 18:57 MCHC Differential 33.2 pg (28.0-36.0) 12/28/16 18:57 RDW 13.4 % (11.5-20.0) 12/28/16 18:57 Plt Count 229 Th/cmm (150-400) 12/28/16 18:57 MPV 7.5 fl 12/28/16 18:57 Neutrophils % 71.4 % (40.0-80.0) 12/28/16 18:57 Lymphocytes % 15.1 % (20.0-50.0) L 12/28/16 18:57 Monocytes % 10.3 % (2.0-10.0) H 12/28/16 18:57 Eosinophils % 3.0 % (0.0-5.0) 12/28/16 18:57 Basophils % 0.2 % (0.0-2.0) 12/28/16 18:57 Sodium 134 mEq/L (136-145) L 12/28/16 18:57 Potassium 4.0 mEq/L (3.5-5.1) 12/28/16 18:57 Chloride 101 mEq/L (98-107) 12/28/16 18:57 Carbon Dioxide 27.8 mEq/L (21.0-31.0) 12/28/16 18:57 Anion Gap 9.2 (7.0-16.0) 12/28/16 18:57 BUN 24 mg/dL (7-25) 12/28/16 18:57 Creatinine 0.9 mg/dL (0.7-1.3) 18 18:57 Est GFR ( Amer) TNP 12/28/16 18:57 Est GFR (Non-Af Amer) TNP 12/28/16 18:57 BUN/Creatinine Ratio 26.7 12/28/16 18:57 Glucose 106 mg/dL (70-105) H 12/28/16 18:57 Hemoglobin A1c % 5.6 % (4.0-6.0) 12/28/16 18:57 Calcium 8.9 mg/dL (8.6-10.3) 12/28/16 18:57 Total Bilirubin 0.4 mg/dL (0.3-1.0) 12/28/16 18:57 AST 17 U/L (13-39) 12/28/16 18:57 ALT 10 U/L (7-52) 12/28/16 18:57 Alkaline Phosphatase 78 U/L (34-104) 12/28/16 18:57 Total Protein 6.9 gm/dL (6.0-8.3) 12/28/16 18:57 Albumin 3.7 gm/dL (4.2-5.5) L 12/28/16 18:57 Globulin 3.2 gm/dL 12/28/16 18:57 Albumin/Globulin Ratio 1.2 (1.0-1.8) 12/28/16 18:57 Triglycerides 58 mg/dL (<150) 12/28/16 18:57 Cholesterol 128 mg/dL (<200) 1817 18:57 LDL Cholesterol Direct 73 mg/dL (75-193) L 18 18:57 HDL Cholesterol 46 mg/dL (23-92) 12/28/16 18:57 TSH 1.98 uIU/ml (0.34-5.60) 1817 18:57 Urine Source CLEAN C 12/28/16 19:56 Urine Color YELLOW 12/28/16 19:56 Urine Clarity CLEAR (CLEAR) 12/28/16 19:56 Urine pH 6.0 (4.6 - 8.0) 12/28/16 19:56 Ur Specific [place] 1.015 (1.005-1.030) 12/28/16 19:56 Urine Protein NEGATIVE mg/dL (NEGATIVE) 12/28/16 19:56 Urine Glucose (UA) NEGATIVE mg/dL (NEGATIVE) 12/28/16 19:56 Urine Ketones NEGATIVE mg/dL (NEGATIVE) 12/28/16 19:56 Urine Blood NEGATIVE (NEGATIVE) 12/28/16 19:56 Urine Nitrate NEGATIVE (NEGATIVE) 12/28/16 19:56 Urine Bilirubin NEGATIVE (NEGATIVE) 12/28/16 19:56 Urine Urobilinogen 0.2 E.U./dL (0.2 - 1.0) 12/28/16 19:56 Ur Leukocyte Esterase NEGATIVE (NEGATIVE) 12/28/16 19:56 Urine RBC 0-2 /hpf (0-5) H 12/28/16 19:56 Urine WBC 0-2 /hpf (0-5) 12/28/16 19:56 Ur Epithelial Cells OCCASIONAL /lpf (FEW) 12/28/16 19:56 Urine Bacteria FEW /hpf (NONE SEEN) 12/28/16 19:56 Salicylates < 25.0 mg/L (30.0-100.0) L 12/28/16 18:57 Urine Opiates Screen NEGATIVE (NEGATIVE) 12/28/16 19:56 Urine Methadone Screen NEGATIVE (NEGATIVE) 12/28/16 19:56 Acetaminophen < 10.0 ug/mL (10.0-30.0) L 12/28/16 18:57 Ur Barbiturates Screen NEGATIVE (NEGATIVE) 12/28/16 19:56 Ur Tricyclics Screen NEGATIVE (NEGATIVE) 12/28/16 19:56 Ur Phencyclidine Scrn NEGATIVE (NEGATIVE) 12/28/16 19:56 Amphetamines Screen NEGATIVE (NEGATIVE) 12/28/16 19:56 U Methamphetamines Scrn NEGATIVE (NEGATIVE) 12/28/16 19:56 U Benzodiazepines Scrn NEGATIVE (NEGATIVE) 12/28/16 19:56 U Cocaine Metab Screen NEGATIVE (NEGATIVE) 12/28/16 19:56 U Cannabinoids Screen NEGATIVE (NEGATIVE) 12/28/16 19:56 Ethyl Alcohol < 10 mg/dL (0-10) 12/28/16 18:57 RPR NONREACTIVE (NONREACTIVE) 12/28/16 18:57 - Physical Exam Vitals and I&O: Vital Signs Temp 97.9 F 01/04/17 07:06 Pulse 108 01/04/17 07:06 Resp 18 01/04/17 07:06 BP 95/55 01/04/17 07:06 Pulse Ox 98 01/04/17 07:06 Intake & Output 01/03/17 01/04/17 01/04/17 18:59 06:59 18:59 Intake Total 850 240 Balance 850 240 Intake: Oral 850 240 Other: # Voids 4 1 3 # Bowel Movements 1 0 Active Medications: Current Medications Acetaminophen (Tylenol) 650 mg PO Q4HR PRN PRN Reason: Pain (Mild) Stop: 02/27/17 17:47 Last Admin: 01/03/17 03:50 Dose: 650 mg Al Hydrox/Mg Hydrox/Simethicone (Maalox) 30 ml PO Q6H PRN PRN Reason: Dyspepsia Stop: 02/26/17 21:40 Calcium/Vitamin D (Oscal W/Vitamin D) 1 tab PO DAILY ISABEL Stop: 02/27/17 08:59 Last Admin: 01/04/17 09:41 Dose: 1 tab Cholecalciferol (Vitamin D3) 1,000 iu PO DAILY ISABEL Stop: 02/27/17 08:59 Last Admin: 01/04/17 09:41 Dose: 1,000 iu Docusate Sodium (Colace) 100 mg PO DAILY ISABEL Stop: 02/27/17 08:59 Last Admin: 01/04/17 09:41 Dose: 100 mg Donepezil HCl (Aricept) 5 mg PO HS ISABEL Stop: 02/27/17 20:59 Last Admin: 01/03/17 20:43 Dose: 5 mg Lorazepam (Ativan) 1 mg PO Q6HR PRN PRN Reason: Agitation Stop: 03/04/17 12:30 Last Admin: 01/04/17 09:41 Dose: 1 mg Magnesium Hydroxide (Milk Of Magnesia) 30 ml PO HS PRN PRN Reason: Constipation Stop: 02/26/17 21:40 Last Admin: 12/29/16 21:24 Dose: 30 ml Megestrol Acetate (Megace) 400 mg PO BID ISABEL PRN Reason: Protocol Stop: 02/28/17 08:59 Last Admin: 01/04/17 09:40 Dose: 400 mg Memantine (Namenda) 5 mg PO DAILY ISABEL Stop: 03/05/17 08:59 Last Admin: 01/04/17 09:41 Dose: 5 mg Risperidone (Risperdal) 0.5 mg PO BID ISABEL PRN Reason: Protocol Stop: 03/03/17 12:41 Last Admin: 01/04/17 09:41 Dose: 0.5 mg Zolpidem Tartrate (Ambien) 5 mg PO HS PRN PRN Reason: Insomnia Stop: 02/26/17 21:40 Last Admin: 01/03/17 23:21 Dose: 5 mg General: demented HEENT: NC/AT, PERRLA, EOMI, anicteric sclerae, throat clear Neck: Supple, No JVD, No thyromegaly, +2 carotid pulse wo bruit, No LAD Lungs: CTAB Cardiovascular: RRR, Normal S1, Normal S2, without murmur Abdomen: soft, non-tender, non-distended Extremities: clear Neurological: no change Internal Medicine Assmt/Plan - Assessment Assessment: 1.ANEMIA 2.DJD. 3.CONSTIPATION. 4.DEMENTIA. - Plan Plan: CONTINUE ON CURRENT MEDICATION AND DIET. Nutritional Asmnt/Malnutr-PDOC - Dietary Evaluation Malnutrition Findings (Please click <Entered> for more info): Nutritional Asmnt/Malnutrition Start: 01/02/17 11: 56 Text: Status: Complete Freq: Document 01/02/17 11:56 [email or web address] (Rec: 01/02/17 12:10 [email or web address]) Nutritional Asmnt/Malnutrition Patient General Information Nutritional Screening Moderate Risk Screening Diagnosis psychosis Pertinent Medical Hx/Surgical Hx dementia, degenerative joint disease, anemia, legally blind Subjective Information Pt is very demented, inappropriate for interview. Per H&P, pt was not eating much [employer], but now is eating 75 % of meals with total assist. Current Diet Order/ Nutrition Support JOSÉ, mechanical soft, ground. Boost BID. Patient / S.O Not Indicated Pertinent Medications calcium, vitamin d, megace Pertinent Labs 01/02: Na: 134, glucose: 106, hgbac1: 5.6 Nutritional Hx/Data Height 1.75 m Height (Calculated Centimeters) 175.3 Current Weight (lbs) 68.039 kg Weight (Calculated Kilograms) 68.0 Weight (Calculated Grams) 90912.9 [place] Body Weight 160 lbs % [place] Body Weight 94 Weight Status Approriate GI Symptoms GI Symptoms Constipation Difficult in: Chewing Food Allergies No Skin Integrity/Comment: intact Current %PO Fair (50-74%) Estimated Nutritional Goals BEE in Kcals: Using Current wt Calories/Kcals/Kg 25-30 Kcals Calculated 8250-1792 Protein: Using Current wt Protein g/k Protein Calculated 68 Fluid: ml 1700 Nutritional Problem No current Nutrition Prob Problem no nutrition diagnosis at this time Etiology n/a Signs/Symptoms: n/a Malnutrition Alert Protein-Calorie Malnutrition N/A Is there a minimum of two criteria No selected? Query Text:Check all the applicable criteria. A minimum of two criteria are recommended for diagnosis of either severe or non-severe malnutrition. Malnutrition Related to Morbid Obesity Malnutrition related to morbid obesity No Intervention/Recommendation Comments Continue JOSÉ, mechanical soft diet with Boost BID. Add daily MVI for variable intake. Expected Outcomes/Goals Expected Outcomes/Goals PO intake >50% Pt to consume at least 1 serving of supplement/day Wt stability Skin to remain intact Labs: WNL Physician Parameters for PEM Normal Weight % 90% - 110% (Normal) Body Mass Index (BMI) 19 - 24 (Normal)
--- NOTE | 2017-01-04 20:58 | Progress Notes ---
DATE: 01/04/2017 Case was discussed with staff of the patient, reviewed records. The patient continues to be confused, demented, irritable, continues to have poor insight, unable to make a safe plan for self-care. Continues to need redirection. Sleeping well and eating well. Needs help with his ADLs. I will be initiating Namenda on the patient to help with his memory and ____ process. His lab work showed TSH within normal range. Urinalysis with some red cells and urine drug screen is negative. We will continue the patient in group therapy and milieu therapy, adjust the medication as needed. JOB# [id number]
[2017-01-05] MEDS: Multivitamin w/ Minerals Tab PO SCH (09:35)
[2017-01-05] MEDS: Calcium Carb/Vit D 500 mg/200 U Tab PO SCH (09:38)
--- NOTE | 2017-01-05 19:24 | Internal Medicine Prog Note ---
Internal Medicine Subjective - Subjective Service Date: 01/05/17 Patient seen and examined:: without staff Patient is:: awake, in wheelchair, confused Per staff patient has:: no adverse event Internal Medicine Objective - Results Result Diagrams: 12/28/16 18:57 12/28/16 18:57 Recent Labs: Laboratory Last Values WBC 6.2 Th/cmm (4.8-10.8) 12/28/16 18:57 RBC 3.72 Mil/cmm (3.80-5.80) L 12/28/16 18:57 Hgb 10.8 gm/dL (12-16) L 12/28/16 18:57 Hct 32.6 % (41.0-60) L 12/28/16 18:57 MCV 87.4 fl (80-99) 12/28/16 18:57 MCH 29.0 pg (27.0-31.0) 12/28/16 18:57 MCHC Differential 33.2 pg (28.0-36.0) 12/28/16 18:57 RDW 13.4 % (11.5-20.0) 12/28/16 18:57 Plt Count 229 Th/cmm (150-400) 12/28/16 18:57 MPV 7.5 fl 12/28/16 18:57 Neutrophils % 71.4 % (40.0-80.0) 12/28/16 18:57 Lymphocytes % 15.1 % (20.0-50.0) L 12/28/16 18:57 Monocytes % 10.3 % (2.0-10.0) H 12/28/16 18:57 Eosinophils % 3.0 % (0.0-5.0) 12/28/16 18:57 Basophils % 0.2 % (0.0-2.0) 12/28/16 18:57 Sodium 134 mEq/L (136-145) L 12/28/16 18:57 Potassium 4.0 mEq/L (3.5-5.1) 12/28/16 18:57 Chloride 101 mEq/L (98-107) 12/28/16 18:57 Carbon Dioxide 27.8 mEq/L (21.0-31.0) 12/28/16 18:57 Anion Gap 9.2 (7.0-16.0) 12/28/16 18:57 BUN 24 mg/dL (7-25) 17 18:57 Creatinine 0.9 mg/dL (0.7-1.3) 12/28/16 18:57 Est GFR ( Amer) TNP 12/28/16 18:57 Est GFR (Non-Af Amer) TNP 12/28/16 18:57 BUN/Creatinine Ratio 26.7 12/28/16 18:57 Glucose 106 mg/dL (70-105) H 12/28/16 18:57 Hemoglobin A1c % 5.6 % (4.0-6.0) 12/28/16 18:57 Calcium 8.9 mg/dL (8.6-10.3) 12/28/16 18:57 Total Bilirubin 0.4 mg/dL (0.3-1.0) 12/28/16 18:57 AST 17 U/L (13-39) 12/28/16 18:57 ALT 10 U/L (7-52) 12/28/16 18:57 Alkaline Phosphatase 78 U/L (34-104) 12/28/16 18:57 Total Protein 6.9 gm/dL (6.0-8.3) 12/28/16 18:57 Albumin 3.7 gm/dL (4.2-5.5) L 12/28/16 18:57 Globulin 3.2 gm/dL 18 18:57 Albumin/Globulin Ratio 1.2 (1.0-1.8) 18 18:57 Triglycerides 58 mg/dL (<150) 12/28/16 18:57 Cholesterol 128 mg/dL (<200) 1817 18:57 LDL Cholesterol Direct 73 mg/dL (75-193) L 1817 18:57 HDL Cholesterol 46 mg/dL (23-92) 18 18:57 TSH 1.98 uIU/ml (0.34-5.60) 18 18:57 Urine Source CLEAN C 12/28/16 19:56 Urine Color YELLOW 12/28/16 19:56 Urine Clarity CLEAR (CLEAR) 12/28/16 19:56 Urine pH 6.0 (4.6 - 8.0) 12/28/16 19:56 Ur Specific [place] 1.015 (1.005-1.030) 12/28/16 19:56 Urine Protein NEGATIVE mg/dL (NEGATIVE) 12/28/16 19:56 Urine Glucose (UA) NEGATIVE mg/dL (NEGATIVE) 12/28/16 19:56 Urine Ketones NEGATIVE mg/dL (NEGATIVE) 12/28/16 19:56 Urine Blood NEGATIVE (NEGATIVE) 12/28/16 19:56 Urine Nitrate NEGATIVE (NEGATIVE) 12/28/16 19:56 Urine Bilirubin NEGATIVE (NEGATIVE) 12/28/16 19:56 Urine Urobilinogen 0.2 E.U./dL (0.2 - 1.0) 12/28/16 19:56 Ur Leukocyte Esterase NEGATIVE (NEGATIVE) 12/28/16 19:56 Urine RBC 0-2 /hpf (0-5) H 12/28/16 19:56 Urine WBC 0-2 /hpf (0-5) 12/28/16 19:56 Ur Epithelial Cells OCCASIONAL /lpf (FEW) 12/28/16 19:56 Urine Bacteria FEW /hpf (NONE SEEN) 12/28/16 19:56 Salicylates < 25.0 mg/L (30.0-100.0) L 12/28/16 18:57 Urine Opiates Screen NEGATIVE (NEGATIVE) 12/28/16 19:56 Urine Methadone Screen NEGATIVE (NEGATIVE) 12/28/16 19:56 Acetaminophen < 10.0 ug/mL (10.0-30.0) L 12/28/16 18:57 Ur Barbiturates Screen NEGATIVE (NEGATIVE) 12/28/16 19:56 Ur Tricyclics Screen NEGATIVE (NEGATIVE) 12/28/16 19:56 Ur Phencyclidine Scrn NEGATIVE (NEGATIVE) 12/28/16 19:56 Amphetamines Screen NEGATIVE (NEGATIVE) 12/28/16 19:56 U Methamphetamines Scrn NEGATIVE (NEGATIVE) 12/28/16 19:56 U Benzodiazepines Scrn NEGATIVE (NEGATIVE) 12/28/16 19:56 U Cocaine Metab Screen NEGATIVE (NEGATIVE) 12/28/16 19:56 U Cannabinoids Screen NEGATIVE (NEGATIVE) 12/28/16 19:56 Ethyl Alcohol < 10 mg/dL (0-10) 12/28/16 18:57 RPR NONREACTIVE (NONREACTIVE) 12/28/16 18:57 - Physical Exam Vitals and I&O: Vital Signs Temp 97.8 F 01/05/17 14:00 Pulse 91 01/05/17 14:00 Resp 18 01/05/17 14:00 BP 124/66 01/05/17 14:00 Pulse Ox 96 01/05/17 14:00 Intake & Output 01/05/17 01/05/17 01/06/17 06:59 18:59 06:59 Intake Total 120 960 Balance 120 960 Intake: Oral 120 960 Other: # Voids 3 3 # Bowel Movements 0 Active Medications: Current Medications Acetaminophen (Tylenol) 650 mg PO Q4HR PRN PRN Reason: Pain (Mild) Stop: 02/27/17 17:47 Last Admin: 01/03/17 03:50 Dose: 650 mg Al Hydrox/Mg Hydrox/Simethicone (Maalox) 30 ml PO Q6H PRN PRN Reason: Dyspepsia Stop: 02/26/17 21:40 Calcium/Vitamin D (Oscal W/Vitamin D) 1 tab PO DAILY ISABEL Stop: 02/27/17 08:59 Last Admin: 01/05/17 09:38 Dose: 1 tab Cholecalciferol (Vitamin D3) 1,000 iu PO DAILY ISABEL Stop: 02/27/17 08:59 Last Admin: 01/05/17 09:38 Dose: 1,000 iu Docusate Sodium (Colace) 100 mg PO DAILY ISABEL Stop: 02/27/17 08:59 Last Admin: 01/05/17 09:38 Dose: 100 mg Donepezil HCl (Aricept) 5 mg PO HS ISABEL Stop: 02/27/17 20:59 Last Admin: 01/04/17 20:39 Dose: 5 mg Lorazepam (Ativan) 1 mg PO Q6HR PRN PRN Reason: Agitation Stop: 03/04/17 12:30 Last Admin: 01/05/17 09:34 Dose: 1 mg Magnesium Hydroxide (Milk Of Magnesia) 30 ml PO HS PRN PRN Reason: Constipation Stop: 02/26/17 21:40 Last Admin: 12/29/16 21:24 Dose: 30 ml Megestrol Acetate (Megace) 400 mg PO BID ISABEL PRN Reason: Protocol Stop: 02/28/17 08:59 Last Admin: 01/05/17 17:11 Dose: 400 mg Memantine (Namenda) 5 mg PO DAILY ISABEL Stop: 03/05/17 08:59 Last Admin: 01/05/17 09:36 Dose: 5 mg Risperidone (Risperdal) 0.5 mg PO BID ISABEL PRN Reason: Protocol Stop: 03/03/17 12:41 Last Admin: 01/05/17 17:12 Dose: 0.5 mg Zolpidem Tartrate (Ambien) 5 mg PO HS PRN PRN Reason: Insomnia Stop: 02/26/17 21:40 Last Admin: 01/04/17 20:39 Dose: 5 mg General: demented HEENT: NC/AT, PERRLA, EOMI, anicteric sclerae, throat clear Neck: Supple, No JVD, No thyromegaly, +2 carotid pulse wo bruit, No LAD Lungs: CTAB Cardiovascular: RRR, Normal S1, Normal S2, without murmur Abdomen: soft, non-tender, non-distended Extremities: clear Neurological: no change Internal Medicine Assmt/Plan - Assessment Assessment: 1.ANEMIA 2.DJD. 3.CONSTIPATION. 4.DEMENTIA. - Plan Plan: CONTINUE ON CURRENT MEDICATION AND DIET. Nutritional Asmnt/Malnutr-PDOC - Dietary Evaluation Malnutrition Findings (Please click <Entered> for more info): Nutritional Asmnt/Malnutrition Start: 01/02/17 11: 56 Text: Status: Complete Freq: Document 01/02/17 11:56 [email or web address] (Rec: 01/02/17 12:10 [email or web address]) Nutritional Asmnt/Malnutrition Patient General Information Nutritional Screening Moderate Risk Screening Diagnosis psychosis Pertinent Medical Hx/Surgical Hx dementia, degenerative joint disease, anemia, legally blind Subjective Information Pt is very demented, inappropriate for interview. Per H&P, pt was not eating much [employer], but now is eating 75 % of meals with total assist. Current Diet Order/ Nutrition Support JOSÉ, mechanical soft, ground. Boost BID. Patient / S.O Not Indicated Pertinent Medications calcium, vitamin d, megace Pertinent Labs 01/02: Na: 134, glucose: 106, hgbac1: 5.6 Nutritional Hx/Data Height 1.75 m Height (Calculated Centimeters) 175.3 Current Weight (lbs) 68.039 kg Weight (Calculated Kilograms) 68.0 Weight (Calculated Grams) 47312.9 [place] Body Weight 160 lbs % [place] Body Weight 94 Weight Status Approriate GI Symptoms GI Symptoms Constipation Difficult in: Chewing Food Allergies No Skin Integrity/Comment: intact Current %PO Fair (50-74%) Estimated Nutritional Goals BEE in Kcals: Using Current wt Calories/Kcals/Kg 25-30 Kcals Calculated 6719-1370 Protein: Using Current wt Protein g/k Protein Calculated 68 Fluid: ml 1700 Nutritional Problem No current Nutrition Prob Problem no nutrition diagnosis at this time Etiology n/a Signs/Symptoms: n/a Malnutrition Alert Protein-Calorie Malnutrition N/A Is there a minimum of two criteria No selected? Query Text:Check all the applicable criteria. A minimum of two criteria are recommended for diagnosis of either severe or non-severe malnutrition. Malnutrition Related to Morbid Obesity Malnutrition related to morbid obesity No Intervention/Recommendation Comments Continue JOSÉ, mechanical soft diet with Boost BID. Add daily MVI for variable intake. Expected Outcomes/Goals Expected Outcomes/Goals PO intake >50% Pt to consume at least 1 serving of supplement/day Wt stability Skin to remain intact Labs: WNL Physician Parameters for PEM Normal Weight % 90% - 110% (Normal) Body Mass Index (BMI) 19 - 24 (Normal)
--- NOTE | 2017-01-06 00:07 | Progress Notes ---
DATE: 01/05/2017 Case was discussed with staff of the patient, reviewed records. The patient continues to have poor insight, demented, confused, unable to make safe plan for self-care. He is sleeping well. He is eating well, compliant with the medication with no side effects, no sedation, no nausea, no extrapyramidal symptoms. He is on Namenda that was initiated yesterday as well as Aricept and Risperdal. I will continue to work with the patient in group therapy, milieu therapy, adjust medication as needed. JOB# [id number]
[2017-01-06] MEDS: Multivitamin w/ Minerals Tab PO SCH (08:54)
[2017-01-06] MEDS: Calcium Carb/Vit D 500 mg/200 U Tab PO SCH (08:54)
--- NOTE | 2017-01-06 18:18 | Internal Medicine Prog Note ---
Internal Medicine Subjective - Subjective Service Date: 01/06/17 Patient seen and examined:: with staff Patient is:: awake, in wheelchair, confused Per staff patient has:: no adverse event Internal Medicine Objective - Results Result Diagrams: 12/28/16 18:57 12/28/16 18:57 Recent Labs: Laboratory Last Values WBC 6.2 Th/cmm (4.8-10.8) 12/28/16 18:57 RBC 3.72 Mil/cmm (3.80-5.80) L 12/28/16 18:57 Hgb 10.8 gm/dL (12-16) L 12/28/16 18:57 Hct 32.6 % (41.0-60) L 12/28/16 18:57 MCV 87.4 fl (80-99) 12/28/16 18:57 MCH 29.0 pg (27.0-31.0) 12/28/16 18:57 MCHC Differential 33.2 pg (28.0-36.0) 12/28/16 18:57 RDW 13.4 % (11.5-20.0) 12/28/16 18:57 Plt Count 229 Th/cmm (150-400) 12/28/16 18:57 MPV 7.5 fl 12/28/16 18:57 Neutrophils % 71.4 % (40.0-80.0) 12/28/16 18:57 Lymphocytes % 15.1 % (20.0-50.0) L 12/28/16 18:57 Monocytes % 10.3 % (2.0-10.0) H 12/28/16 18:57 Eosinophils % 3.0 % (0.0-5.0) 12/28/16 18:57 Basophils % 0.2 % (0.0-2.0) 12/28/16 18:57 Sodium 134 mEq/L (136-145) L 12/28/16 18:57 Potassium 4.0 mEq/L (3.5-5.1) 12/28/16 18:57 Chloride 101 mEq/L (98-107) 12/28/16 18:57 Carbon Dioxide 27.8 mEq/L (21.0-31.0) 12/28/16 18:57 Anion Gap 9.2 (7.0-16.0) 12/28/16 18:57 BUN 24 mg/dL (7-25) 17 18:57 Creatinine 0.9 mg/dL (0.7-1.3) 12/28/16 18:57 Est GFR ( Amer) TNP 12/28/16 18:57 Est GFR (Non-Af Amer) TNP 12/28/16 18:57 BUN/Creatinine Ratio 26.7 12/28/16 18:57 Glucose 106 mg/dL (70-105) H 12/28/16 18:57 Hemoglobin A1c % 5.6 % (4.0-6.0) 12/28/16 18:57 Calcium 8.9 mg/dL (8.6-10.3) 12/28/16 18:57 Total Bilirubin 0.4 mg/dL (0.3-1.0) 12/28/16 18:57 AST 17 U/L (13-39) 12/28/16 18:57 ALT 10 U/L (7-52) 12/28/16 18:57 Alkaline Phosphatase 78 U/L (34-104) 12/28/16 18:57 Total Protein 6.9 gm/dL (6.0-8.3) 12/28/16 18:57 Albumin 3.7 gm/dL (4.2-5.5) L 12/28/16 18:57 Globulin 3.2 gm/dL 18 18:57 Albumin/Globulin Ratio 1.2 (1.0-1.8) 18 18:57 Triglycerides 58 mg/dL (<150) 12/28/16 18:57 Cholesterol 128 mg/dL (<200) 1817 18:57 LDL Cholesterol Direct 73 mg/dL (75-193) L 1817 18:57 HDL Cholesterol 46 mg/dL (23-92) 18 18:57 TSH 1.98 uIU/ml (0.34-5.60) 18 18:57 Urine Source CLEAN C 12/28/16 19:56 Urine Color YELLOW 12/28/16 19:56 Urine Clarity CLEAR (CLEAR) 12/28/16 19:56 Urine pH 6.0 (4.6 - 8.0) 12/28/16 19:56 Ur Specific [place] 1.015 (1.005-1.030) 12/28/16 19:56 Urine Protein NEGATIVE mg/dL (NEGATIVE) 12/28/16 19:56 Urine Glucose (UA) NEGATIVE mg/dL (NEGATIVE) 12/28/16 19:56 Urine Ketones NEGATIVE mg/dL (NEGATIVE) 12/28/16 19:56 Urine Blood NEGATIVE (NEGATIVE) 12/28/16 19:56 Urine Nitrate NEGATIVE (NEGATIVE) 12/28/16 19:56 Urine Bilirubin NEGATIVE (NEGATIVE) 12/28/16 19:56 Urine Urobilinogen 0.2 E.U./dL (0.2 - 1.0) 12/28/16 19:56 Ur Leukocyte Esterase NEGATIVE (NEGATIVE) 12/28/16 19:56 Urine RBC 0-2 /hpf (0-5) H 12/28/16 19:56 Urine WBC 0-2 /hpf (0-5) 12/28/16 19:56 Ur Epithelial Cells OCCASIONAL /lpf (FEW) 12/28/16 19:56 Urine Bacteria FEW /hpf (NONE SEEN) 12/28/16 19:56 Salicylates < 25.0 mg/L (30.0-100.0) L 12/28/16 18:57 Urine Opiates Screen NEGATIVE (NEGATIVE) 12/28/16 19:56 Urine Methadone Screen NEGATIVE (NEGATIVE) 12/28/16 19:56 Acetaminophen < 10.0 ug/mL (10.0-30.0) L 12/28/16 18:57 Ur Barbiturates Screen NEGATIVE (NEGATIVE) 12/28/16 19:56 Ur Tricyclics Screen NEGATIVE (NEGATIVE) 12/28/16 19:56 Ur Phencyclidine Scrn NEGATIVE (NEGATIVE) 12/28/16 19:56 Amphetamines Screen NEGATIVE (NEGATIVE) 12/28/16 19:56 U Methamphetamines Scrn NEGATIVE (NEGATIVE) 12/28/16 19:56 U Benzodiazepines Scrn NEGATIVE (NEGATIVE) 12/28/16 19:56 U Cocaine Metab Screen NEGATIVE (NEGATIVE) 12/28/16 19:56 U Cannabinoids Screen NEGATIVE (NEGATIVE) 12/28/16 19:56 Ethyl Alcohol < 10 mg/dL (0-10) 12/28/16 18:57 RPR NONREACTIVE (NONREACTIVE) 12/28/16 18:57 - Physical Exam Vitals and I&O: Vital Signs Temp 97.9 F 01/06/17 14:00 Pulse 91 01/06/17 14:00 Resp 18 01/06/17 14:00 BP 118/58 01/06/17 14:00 Pulse Ox 96 01/06/17 14:00 Intake & Output 01/05/17 01/06/17 01/06/17 18:59 06:59 18:59 Intake Total 960 120 Balance 960 120 Intake: Oral 960 120 Other: # Voids 3 3 # Bowel Movements 0 Active Medications: Current Medications Acetaminophen (Tylenol) 650 mg PO Q4HR PRN PRN Reason: Pain (Mild) Stop: 02/27/17 17:47 Last Admin: 01/03/17 03:50 Dose: 650 mg Al Hydrox/Mg Hydrox/Simethicone (Maalox) 30 ml PO Q6H PRN PRN Reason: Dyspepsia Stop: 02/26/17 21:40 Calcium/Vitamin D (Oscal W/Vitamin D) 1 tab PO DAILY ISABEL Stop: 02/27/17 08:59 Last Admin: 01/06/17 08:54 Dose: 1 tab Cholecalciferol (Vitamin D3) 1,000 iu PO DAILY ISABEL Stop: 02/27/17 08:59 Last Admin: 01/06/17 08:54 Dose: 1,000 iu Docusate Sodium (Colace) 100 mg PO DAILY ISABEL Stop: 02/27/17 08:59 Last Admin: 01/06/17 08:54 Dose: 100 mg Donepezil HCl (Aricept) 5 mg PO HS ISABEL Stop: 02/27/17 20:59 Last Admin: 01/05/17 20:36 Dose: 5 mg Lorazepam (Ativan) 1 mg PO Q6HR PRN PRN Reason: Agitation Stop: 03/04/17 12:30 Last Admin: 01/06/17 08:54 Dose: 1 mg Magnesium Hydroxide (Milk Of Magnesia) 30 ml PO HS PRN PRN Reason: Constipation Stop: 02/26/17 21:40 Last Admin: 12/29/16 21:24 Dose: 30 ml Megestrol Acetate (Megace) 400 mg PO BID ISABEL PRN Reason: Protocol Stop: 02/28/17 08:59 Last Admin: 01/06/17 08:54 Dose: 400 mg Memantine (Namenda) 5 mg PO DAILY ISABEL Stop: 03/05/17 08:59 Last Admin: 01/06/17 08:54 Dose: 5 mg Risperidone (Risperdal) 0.5 mg PO BID ISABEL PRN Reason: Protocol Stop: 03/03/17 12:41 Last Admin: 01/06/17 08:54 Dose: 0.5 mg Zolpidem Tartrate (Ambien) 5 mg PO HS PRN PRN Reason: Insomnia Stop: 02/26/17 21:40 Last Admin: 01/05/17 20:36 Dose: 5 mg General: demented HEENT: NC/AT, PERRLA, EOMI, anicteric sclerae, throat clear Neck: Supple, No JVD, No thyromegaly, +2 carotid pulse wo bruit, No LAD Lungs: CTAB Cardiovascular: RRR, Normal S1, Normal S2, without murmur Abdomen: soft, non-tender, non-distended Extremities: clear Neurological: no change Internal Medicine Assmt/Plan - Assessment Assessment: 1.ANEMIA 2.DJD. 3.CONSTIPATION. 4.DEMENTIA. - Plan Plan: CONTINUE ON CURRENT MEDICATION AND DIET. Nutritional Asmnt/Malnutr-PDOC - Dietary Evaluation Malnutrition Findings (Please click <Entered> for more info): Nutritional Asmnt/Malnutrition Start: 01/02/17 11: 56 Text: Status: Complete Freq: Document 01/02/17 11:56 [email or web address] (Rec: 01/02/17 12:10 [email or web address]) Nutritional Asmnt/Malnutrition Patient General Information Nutritional Screening Moderate Risk Screening Diagnosis psychosis Pertinent Medical Hx/Surgical Hx dementia, degenerative joint disease, anemia, legally blind Subjective Information Pt is very demented, inappropriate for interview. Per H&P, pt was not eating much [employer], but now is eating 75 % of meals with total assist. Current Diet Order/ Nutrition Support JOSÉ, mechanical soft, ground. Boost BID. Patient / S.O Not Indicated Pertinent Medications calcium, vitamin d, megace Pertinent Labs 01/02: Na: 134, glucose: 106, hgbac1: 5.6 Nutritional Hx/Data Height 1.75 m Height (Calculated Centimeters) 175.3 Current Weight (lbs) 68.039 kg Weight (Calculated Kilograms) 68.0 Weight (Calculated Grams) 96995.9 [place] Body Weight 160 lbs % [place] Body Weight 94 Weight Status Approriate GI Symptoms GI Symptoms Constipation Difficult in: Chewing Food Allergies No Skin Integrity/Comment: intact Current %PO Fair (50-74%) Estimated Nutritional Goals BEE in Kcals: Using Current wt Calories/Kcals/Kg 25-30 Kcals Calculated 6224-9624 Protein: Using Current wt Protein g/k Protein Calculated 68 Fluid: ml 1700 Nutritional Problem No current Nutrition Prob Problem no nutrition diagnosis at this time Etiology n/a Signs/Symptoms: n/a Malnutrition Alert Protein-Calorie Malnutrition N/A Is there a minimum of two criteria No selected? Query Text:Check all the applicable criteria. A minimum of two criteria are recommended for diagnosis of either severe or non-severe malnutrition. Malnutrition Related to Morbid Obesity Malnutrition related to morbid obesity No Intervention/Recommendation Comments Continue JOSÉ, mechanical soft diet with Boost BID. Add daily MVI for variable intake. Expected Outcomes/Goals Expected Outcomes/Goals PO intake >50% Pt to consume at least 1 serving of supplement/day Wt stability Skin to remain intact Labs: WNL Physician Parameters for PEM Normal Weight % 90% - 110% (Normal) Body Mass Index (BMI) 19 - 24 (Normal)
--- NOTE | 2017-01-06 22:53 | Progress Notes ---
DATE: 01/06/2017 Case was discussed with staff of patient: The patient is starting to get a bit calmer, still confused, unpredictable, impulsive, needing redirection. Continues to be unable to participate in meaningful conversation or make safe plan for self-care but he is sleeping better, eating better. No side effects to the medication, no sedation, no nausea and no extrapyramidal symptoms. We will continue to work with the patient in group therapy, milieu therapy, and adjust medication as needed. JOB# [id number]
[2017-01-07] MEDS: Multivitamin w/ Minerals Tab PO SCH (08:09)
[2017-01-07] MEDS: Calcium Carb/Vit D 500 mg/200 U Tab PO SCH (08:09)
--- NOTE | 2017-01-07 18:23 | General Progress Note ---
Subjective - Review of Systems Service Date: 01/07/17 Subjective: resting in bed comfortably legally blind but able to make needs known no distress Objective - Results Result Diagrams: 12/28/16 18:57 12/28/16 18:57 Recent Labs: Laboratory Last Values WBC 6.2 Th/cmm (4.8-10.8) 12/28/16 18:57 RBC 3.72 Mil/cmm (3.80-5.80) L 12/28/16 18:57 Hgb 10.8 gm/dL (12-16) L 12/28/16 18:57 Hct 32.6 % (41.0-60) L 12/28/16 18:57 MCV 87.4 fl (80-99) 12/28/16 18:57 MCH 29.0 pg (27.0-31.0) 12/28/16 18:57 MCHC Differential 33.2 pg (28.0-36.0) 12/28/16 18:57 RDW 13.4 % (11.5-20.0) 12/28/16 18:57 Plt Count 229 Th/cmm (150-400) 12/28/16 18:57 MPV 7.5 fl 12/28/16 18:57 Neutrophils % 71.4 % (40.0-80.0) 12/28/16 18:57 Lymphocytes % 15.1 % (20.0-50.0) L 12/28/16 18:57 Monocytes % 10.3 % (2.0-10.0) H 12/28/16 18:57 Eosinophils % 3.0 % (0.0-5.0) 12/28/16 18:57 Basophils % 0.2 % (0.0-2.0) 12/28/16 18:57 Sodium 134 mEq/L (136-145) L 12/28/16 18:57 Potassium 4.0 mEq/L (3.5-5.1) 12/28/16 18:57 Chloride 101 mEq/L (98-107) 12/28/16 18:57 Carbon Dioxide 27.8 mEq/L (21.0-31.0) 12/28/16 18:57 Anion Gap 9.2 (7.0-16.0) 12/28/16 18:57 BUN 24 mg/dL (7-25) 12/28/16 18:57 Creatinine 0.9 mg/dL (0.7-1.3) 12/28/16 18:57 Est GFR ( Amer) TNP 12/28/16 18:57 Est GFR (Non-Af Amer) TNP 12/28/16 18:57 BUN/Creatinine Ratio 26.7 12/28/16 18:57 Glucose 106 mg/dL (70-105) H 12/28/16 18:57 Hemoglobin A1c % 5.6 % (4.0-6.0) 12/28/16 18:57 Calcium 8.9 mg/dL (8.6-10.3) 12/28/16 18:57 Total Bilirubin 0.4 mg/dL (0.3-1.0) 12/28/16 18:57 AST 17 U/L (13-39) 12/28/16 18:57 ALT 10 U/L (7-52) 12/28/16 18:57 Alkaline Phosphatase 78 U/L (34-104) 12/28/16 18:57 Total Protein 6.9 gm/dL (6.0-8.3) 12/28/16 18:57 Albumin 3.7 gm/dL (4.2-5.5) L 12/28/16 18:57 Globulin 3.2 gm/dL 12/28/16 18:57 Albumin/Globulin Ratio 1.2 (1.0-1.8) 12/28/16 18:57 Triglycerides 58 mg/dL (<150) 12/28/16 18:57 Cholesterol 128 mg/dL (<200) 12/28/16 18:57 LDL Cholesterol Direct 73 mg/dL (75-193) L 12/28/16 18:57 HDL Cholesterol 46 mg/dL (23-92) 12/28/16 18:57 TSH 1.98 uIU/ml (0.34-5.60) 18 18:57 Urine Source CLEAN C 12/28/16 19:56 Urine Color YELLOW 12/28/16 19:56 Urine Clarity CLEAR (CLEAR) 12/28/16 19:56 Urine pH 6.0 (4.6 - 8.0) 12/28/16 19:56 Ur Specific [place] 1.015 (1.005-1.030) 12/28/16 19:56 Urine Protein NEGATIVE mg/dL (NEGATIVE) 12/28/16 19:56 Urine Glucose (UA) NEGATIVE mg/dL (NEGATIVE) 12/28/16 19:56 Urine Ketones NEGATIVE mg/dL (NEGATIVE) 12/28/16 19:56 Urine Blood NEGATIVE (NEGATIVE) 12/28/16 19:56 Urine Nitrate NEGATIVE (NEGATIVE) 12/28/16 19:56 Urine Bilirubin NEGATIVE (NEGATIVE) 12/28/16 19:56 Urine Urobilinogen 0.2 E.U./dL (0.2 - 1.0) 12/28/16 19:56 Ur Leukocyte Esterase NEGATIVE (NEGATIVE) 12/28/16 19:56 Urine RBC 0-2 /hpf (0-5) H 12/28/16 19:56 Urine WBC 0-2 /hpf (0-5) 12/28/16 19:56 Ur Epithelial Cells OCCASIONAL /lpf (FEW) 12/28/16 19:56 Urine Bacteria FEW /hpf (NONE SEEN) 12/28/16 19:56 Salicylates < 25.0 mg/L (30.0-100.0) L 12/28/16 18:57 Urine Opiates Screen NEGATIVE (NEGATIVE) 12/28/16 19:56 Urine Methadone Screen NEGATIVE (NEGATIVE) 12/28/16 19:56 Acetaminophen < 10.0 ug/mL (10.0-30.0) L 12/28/16 18:57 Ur Barbiturates Screen NEGATIVE (NEGATIVE) 12/28/16 19:56 Ur Tricyclics Screen NEGATIVE (NEGATIVE) 12/28/16 19:56 Ur Phencyclidine Scrn NEGATIVE (NEGATIVE) 12/28/16 19:56 Amphetamines Screen NEGATIVE (NEGATIVE) 12/28/16 19:56 U Methamphetamines Scrn NEGATIVE (NEGATIVE) 12/28/16 19:56 U Benzodiazepines Scrn NEGATIVE (NEGATIVE) 12/28/16 19:56 U Cocaine Metab Screen NEGATIVE (NEGATIVE) 12/28/16 19:56 U Cannabinoids Screen NEGATIVE (NEGATIVE) 12/28/16 19:56 Ethyl Alcohol < 10 mg/dL (0-10) 12/28/16 18:57 RPR NONREACTIVE (NONREACTIVE) 12/28/16 18:57 - Physical Exam Vitals and I&O: Vital Signs Temp 98.1 F 01/07/17 14:00 Pulse 85 01/07/17 14:00 Resp 20 01/07/17 14:00 BP 107/50 01/07/17 14:00 Pulse Ox 96 01/07/17 14:00 Intake & Output 01/06/17 01/07/17 01/07/17 18:59 06:59 18:59 Intake Total 1080 Balance 1080 Intake: Oral 1080 Other: # Voids 3 # Bowel Movements 0 Active Medications: Current Medications Acetaminophen (Tylenol) 650 mg PO Q4HR PRN PRN Reason: Pain (Mild) Stop: 02/27/17 17:47 Last Admin: 01/03/17 03:50 Dose: 650 mg Al Hydrox/Mg Hydrox/Simethicone (Maalox) 30 ml PO Q6H PRN PRN Reason: Dyspepsia Stop: 02/26/17 21:40 Calcium/Vitamin D (Oscal W/Vitamin D) 1 tab PO DAILY ISABEL Stop: 02/27/17 08:59 Last Admin: 01/07/17 08:09 Dose: 1 tab Cholecalciferol (Vitamin D3) 1,000 iu PO DAILY ISABEL Stop: 02/27/17 08:59 Last Admin: 01/07/17 08:09 Dose: 1,000 iu Docusate Sodium (Colace) 100 mg PO DAILY ISABEL Stop: 02/27/17 08:59 Last Admin: 01/07/17 08:09 Dose: 100 mg Donepezil HCl (Aricept) 5 mg PO HS ISABEL Stop: 02/27/17 20:59 Last Admin: 01/06/17 20:36 Dose: 5 mg Lorazepam (Ativan) 1 mg PO Q6HR PRN PRN Reason: Agitation Stop: 03/04/17 12:30 Last Admin: 01/07/17 08:44 Dose: 1 mg Magnesium Hydroxide (Milk Of Magnesia) 30 ml PO HS PRN PRN Reason: Constipation Stop: 02/26/17 21:40 Last Admin: 12/29/16 21:24 Dose: 30 ml Megestrol Acetate (Megace) 400 mg PO BID ISABEL PRN Reason: Protocol Stop: 02/28/17 08:59 Last Admin: 01/07/17 16:38 Dose: 400 mg Memantine (Namenda) 5 mg PO DAILY ISABEL Stop: 03/05/17 08:59 Last Admin: 01/07/17 08:09 Dose: 5 mg Risperidone (Risperdal) 0.5 mg PO BID ISABEL PRN Reason: Protocol Stop: 03/03/17 12:41 Last Admin: 01/07/17 16:38 Dose: 0.5 mg Zolpidem Tartrate (Ambien) 5 mg PO HS PRN PRN Reason: Insomnia Stop: 02/26/17 21:40 Last Admin: 01/05/17 20:36 Dose: 5 mg General: Alert HEENT: Atraumatic, EOMI Neck: Supple, JVD Cardiovascular: Regular rate, Normal S1, Normal S2 Lungs: Clear to auscultation Abdomen: Bowel sounds, Soft Assessment/Plan - Assessment Assessment: 1.ANEMIA 2.DJD. 3.CONSTIPATION. 4.DEMENTIA. - Plan Plan: cont current treatment Nutritional Asmnt/Malnutr-PDOC - Dietary Evaluation Malnutrition Findings (Please click <Entered> for more info): Nutritional Asmnt/Malnutrition Start: 01/02/17 11: 56 Text: Status: Complete Freq: Document 01/02/17 11:56 [email or web address] (Rec: 01/02/17 12:10 [email or web address]) Nutritional Asmnt/Malnutrition Patient General Information Nutritional Screening Moderate Risk Screening Diagnosis psychosis Pertinent Medical Hx/Surgical Hx dementia, degenerative joint disease, anemia, legally blind Subjective Information Pt is very demented, inappropriate for interview. Per H&P, pt was not eating much [employer], but now is eating 75 % of meals with total assist. Current Diet Order/ Nutrition Support JOSÉ, mechanical soft, ground. Boost BID. Patient / S.O Not Indicated Pertinent Medications calcium, vitamin d, megace Pertinent Labs 01/02: Na: 134, glucose: 106, hgbac1: 5.6 Nutritional Hx/Data Height 1.75 m Height (Calculated Centimeters) 175.3 Current Weight (lbs) 68.039 kg Weight (Calculated Kilograms) 68.0 Weight (Calculated Grams) 06580.9 [place] Body Weight 160 lbs % [place] Body Weight 94 Weight Status Approriate GI Symptoms GI Symptoms Constipation Difficult in: Chewing Food Allergies No Skin Integrity/Comment: intact Current %PO Fair (50-74%) Estimated Nutritional Goals BEE in Kcals: Using Current wt Calories/Kcals/Kg 25-30 Kcals Calculated 3970-0231 Protein: Using Current wt Protein g/k Protein Calculated 68 Fluid: ml 1700 Nutritional Problem No current Nutrition Prob Problem no nutrition diagnosis at this time Etiology n/a Signs/Symptoms: n/a Malnutrition Alert Protein-Calorie Malnutrition N/A Is there a minimum of two criteria No selected? Query Text:Check all the applicable criteria. A minimum of two criteria are recommended for diagnosis of either severe or non-severe malnutrition. Malnutrition Related to Morbid Obesity Malnutrition related to morbid obesity No Intervention/Recommendation Comments Continue JOSÉ, mechanical soft diet with Boost BID. Add daily MVI for variable intake. Expected Outcomes/Goals Expected Outcomes/Goals PO intake >50% Pt to consume at least 1 serving of supplement/day Wt stability Skin to remain intact Labs: WNL Physician Parameters for PEM Normal Weight % 90% - 110% (Normal) Body Mass Index (BMI) 19 - 24 (Normal)
--- NOTE | 2017-01-08 03:34 | Progress Notes ---
DATE: SUBJECTIVE: The patient is currently in the hospital, coming from [place], agitated, delusional, screaming, yelling, needing p.r.n. medications. He remains agitated, yelling, banging in his chair. Symptoms are ongoing. Dr. Smith has been seeing the patient over the past few days, noting that he remains impulsive, unpredictable, still confused, needing a lot of redirection, eating with prompting. Slept about 7 hours last night. Medications were reviewed. No overt side effects on exam. ASSESSMENT: The patient remains symptomatic, still aggressive, banging his chair, disrupting the milieu, yelling. PLAN: We will continue to monitor. Given his ongoing symptoms, he is not safe for discharge. We will continue medications at current dose and titrate appropriately. [facility]# [id number]
[2017-01-08] MEDS: Calcium Carb/Vit D 500 mg/200 U Tab PO SCH (08:15)
[2017-01-08] MEDS: Multivitamin w/ Minerals Tab PO SCH (08:15)
[2017-01-08] MEDS ORDERED: Albuterol Nebulizer 2.5mg/3mL HHN PRN (16:43)
--- NOTE | 2017-01-08 16:45 | General Progress Note ---
Subjective - Review of Systems Service Date: 01/08/17 Subjective: resting in bed comfortably no distress Objective - Results Result Diagrams: 12/28/16 18:57 12/28/16 18:57 Recent Labs: Laboratory Last Values WBC 6.2 Th/cmm (4.8-10.8) 12/28/16 18:57 RBC 3.72 Mil/cmm (3.80-5.80) L 12/28/16 18:57 Hgb 10.8 gm/dL (12-16) L 12/28/16 18:57 Hct 32.6 % (41.0-60) L 12/28/16 18:57 MCV 87.4 fl (80-99) 12/28/16 18:57 MCH 29.0 pg (27.0-31.0) 12/28/16 18:57 MCHC Differential 33.2 pg (28.0-36.0) 12/28/16 18:57 RDW 13.4 % (11.5-20.0) 12/28/16 18:57 Plt Count 229 Th/cmm (150-400) 12/28/16 18:57 MPV 7.5 fl 12/28/16 18:57 Neutrophils % 71.4 % (40.0-80.0) 12/28/16 18:57 Lymphocytes % 15.1 % (20.0-50.0) L 12/28/16 18:57 Monocytes % 10.3 % (2.0-10.0) H 12/28/16 18:57 Eosinophils % 3.0 % (0.0-5.0) 12/28/16 18:57 Basophils % 0.2 % (0.0-2.0) 12/28/16 18:57 Sodium 134 mEq/L (136-145) L 12/28/16 18:57 Potassium 4.0 mEq/L (3.5-5.1) 12/28/16 18:57 Chloride 101 mEq/L (98-107) 12/28/16 18:57 Carbon Dioxide 27.8 mEq/L (21.0-31.0) 12/28/16 18:57 Anion Gap 9.2 (7.0-16.0) 12/28/16 18:57 BUN 24 mg/dL (7-25) 12/28/16 18:57 Creatinine 0.9 mg/dL (0.7-1.3) 18 18:57 Est GFR ( Amer) TNP 12/28/16 18:57 Est GFR (Non-Af Amer) TNP 12/28/16 18:57 BUN/Creatinine Ratio 26.7 12/28/16 18:57 Glucose 106 mg/dL (70-105) H 12/28/16 18:57 Hemoglobin A1c % 5.6 % (4.0-6.0) 12/28/16 18:57 Calcium 8.9 mg/dL (8.6-10.3) 12/28/16 18:57 Total Bilirubin 0.4 mg/dL (0.3-1.0) 12/28/16 18:57 AST 17 U/L (13-39) 12/28/16 18:57 ALT 10 U/L (7-52) 12/28/16 18:57 Alkaline Phosphatase 78 U/L (34-104) 12/28/16 18:57 Total Protein 6.9 gm/dL (6.0-8.3) 12/28/16 18:57 Albumin 3.7 gm/dL (4.2-5.5) L 12/28/16 18:57 Globulin 3.2 gm/dL 12/28/16 18:57 Albumin/Globulin Ratio 1.2 (1.0-1.8) 18 18:57 Triglycerides 58 mg/dL (<150) 12/28/16 18:57 Cholesterol 128 mg/dL (<200) 12/28/16 18:57 LDL Cholesterol Direct 73 mg/dL (75-193) L 12/28/16 18:57 HDL Cholesterol 46 mg/dL (23-92) 12/28/16 18:57 TSH 1.98 uIU/ml (0.34-5.60) 18 18:57 Urine Source CLEAN C 12/28/16 19:56 Urine Color YELLOW 12/28/16 19:56 Urine Clarity CLEAR (CLEAR) 12/28/16 19:56 Urine pH 6.0 (4.6 - 8.0) 12/28/16 19:56 Ur Specific [place] 1.015 (1.005-1.030) 12/28/16 19:56 Urine Protein NEGATIVE mg/dL (NEGATIVE) 12/28/16 19:56 Urine Glucose (UA) NEGATIVE mg/dL (NEGATIVE) 12/28/16 19:56 Urine Ketones NEGATIVE mg/dL (NEGATIVE) 12/28/16 19:56 Urine Blood NEGATIVE (NEGATIVE) 12/28/16 19:56 Urine Nitrate NEGATIVE (NEGATIVE) 12/28/16 19:56 Urine Bilirubin NEGATIVE (NEGATIVE) 12/28/16 19:56 Urine Urobilinogen 0.2 E.U./dL (0.2 - 1.0) 12/28/16 19:56 Ur Leukocyte Esterase NEGATIVE (NEGATIVE) 12/28/16 19:56 Urine RBC 0-2 /hpf (0-5) H 12/28/16 19:56 Urine WBC 0-2 /hpf (0-5) 12/28/16 19:56 Ur Epithelial Cells OCCASIONAL /lpf (FEW) 12/28/16 19:56 Urine Bacteria FEW /hpf (NONE SEEN) 12/28/16 19:56 Salicylates < 25.0 mg/L (30.0-100.0) L 12/28/16 18:57 Urine Opiates Screen NEGATIVE (NEGATIVE) 12/28/16 19:56 Urine Methadone Screen NEGATIVE (NEGATIVE) 12/28/16 19:56 Acetaminophen < 10.0 ug/mL (10.0-30.0) L 12/28/16 18:57 Ur Barbiturates Screen NEGATIVE (NEGATIVE) 12/28/16 19:56 Ur Tricyclics Screen NEGATIVE (NEGATIVE) 12/28/16 19:56 Ur Phencyclidine Scrn NEGATIVE (NEGATIVE) 12/28/16 19:56 Amphetamines Screen NEGATIVE (NEGATIVE) 12/28/16 19:56 U Methamphetamines Scrn NEGATIVE (NEGATIVE) 12/28/16 19:56 U Benzodiazepines Scrn NEGATIVE (NEGATIVE) 12/28/16 19:56 U Cocaine Metab Screen NEGATIVE (NEGATIVE) 12/28/16 19:56 U Cannabinoids Screen NEGATIVE (NEGATIVE) 12/28/16 19:56 Ethyl Alcohol < 10 mg/dL (0-10) 12/28/16 18:57 RPR NONREACTIVE (NONREACTIVE) 12/28/16 18:57 - Physical Exam Vitals and I&O: Vital Signs Temp 97.8 F 01/08/17 14:00 Pulse 99 01/08/17 14:00 Resp 20 01/08/17 14:00 BP 116/70 01/08/17 14:00 Pulse Ox 98 01/08/17 14:00 Intake & Output 01/07/17 01/08/17 01/08/17 18:59 06:59 18:59 Intake Total 1200 120 Balance 1200 120 Intake: Oral 1200 120 Other: # Voids 1 # Bowel Movements 1 Active Medications: Current Medications Acetaminophen (Tylenol) 650 mg PO Q4HR PRN PRN Reason: Pain (Mild) Stop: 02/27/17 17:47 Last Admin: 01/08/17 09:59 Dose: 650 mg Al Hydrox/Mg Hydrox/Simethicone (Maalox) 30 ml PO Q6H PRN PRN Reason: Dyspepsia Stop: 02/26/17 21:40 Last Admin: 01/08/17 09:59 Dose: 30 ml Albuterol Sulfate (Albuterol 2.5mg/3ml Neb Ud) 2.5 mg HHN Q6H PRN PRN Reason: Cough Stop: 03/09/17 16:42 Calcium/Vitamin D (Oscal W/Vitamin D) 1 tab PO DAILY ISABEL Stop: 02/27/17 08:59 Last Admin: 01/08/17 08:15 Dose: 1 tab Cholecalciferol (Vitamin D3) 1,000 iu PO DAILY ISABEL Stop: 02/27/17 08:59 Last Admin: 01/08/17 08:16 Dose: 1,000 iu Docusate Sodium (Colace) 100 mg PO DAILY ISABEL Stop: 02/27/17 08:59 Last Admin: 01/08/17 08:16 Dose: 100 mg Donepezil HCl (Aricept) 5 mg PO HS ISABEL Stop: 02/27/17 20:59 Last Admin: 01/07/17 20:53 Dose: 5 mg Lorazepam (Ativan) 1 mg PO Q6HR PRN PRN Reason: Agitation Stop: 03/04/17 12:30 Last Admin: 01/08/17 01:56 Dose: 1 mg Magnesium Hydroxide (Milk Of Magnesia) 30 ml PO HS PRN PRN Reason: Constipation Stop: 02/26/17 21:40 Last Admin: 12/29/16 21:24 Dose: 30 ml Megestrol Acetate (Megace) 400 mg PO BID ISABEL PRN Reason: Protocol Stop: 02/28/17 08:59 Last Admin: 01/08/17 16:26 Dose: 400 mg Memantine (Namenda) 5 mg PO DAILY ISABEL Stop: 03/05/17 08:59 Last Admin: 01/08/17 08:16 Dose: 5 mg Risperidone (Risperdal) 0.5 mg PO BID ISABEL PRN Reason: Protocol Stop: 03/03/17 12:41 Last Admin: 01/08/17 16:27 Dose: 0.5 mg Zolpidem Tartrate (Ambien) 5 mg PO HS PRN PRN Reason: Insomnia Stop: 02/26/17 21:40 Last Admin: 01/07/17 20:53 Dose: 5 mg General: Alert HEENT: Atraumatic, EOMI Neck: Supple, JVD Cardiovascular: Regular rate, Normal S1, Normal S2 Lungs: Clear to auscultation Abdomen: Bowel sounds, Soft Assessment/Plan - Assessment Assessment: 1.ANEMIA 2.DJD. 3.CONSTIPATION. 4.DEMENTIA. - Plan Plan: cont current treatment Nutritional Asmnt/Malnutr-PDOC - Dietary Evaluation Malnutrition Findings (Please click <Entered> for more info): Nutritional Asmnt/Malnutrition Start: 01/02/17 11: 56 Text: Status: Complete Freq: Document 01/02/17 11:56 [email or web address] (Rec: 01/02/17 12:10 [email or web address]) Nutritional Asmnt/Malnutrition Patient General Information Nutritional Screening Moderate Risk Screening Diagnosis psychosis Pertinent Medical Hx/Surgical Hx dementia, degenerative joint disease, anemia, legally blind Subjective Information Pt is very demented, inappropriate for interview. Per H&P, pt was not eating much [employer], but now is eating 75 % of meals with total assist. Current Diet Order/ Nutrition Support JOSÉ, mechanical soft, ground. Boost BID. Patient / S.O Not Indicated Pertinent Medications calcium, vitamin d, megace Pertinent Labs 01/02: Na: 134, glucose: 106, hgbac1: 5.6 Nutritional Hx/Data Height 1.75 m Height (Calculated Centimeters) 175.3 Current Weight (lbs) 68.039 kg Weight (Calculated Kilograms) 68.0 Weight (Calculated Grams) 88213.9 [place] Body Weight 160 lbs % [place] Body Weight 94 Weight Status Approriate GI Symptoms GI Symptoms Constipation Difficult in: Chewing Food Allergies No Skin Integrity/Comment: intact Current %PO Fair (50-74%) Estimated Nutritional Goals BEE in Kcals: Using Current wt Calories/Kcals/Kg 25-30 Kcals Calculated 9125-7373 Protein: Using Current wt Protein g/k Protein Calculated 68 Fluid: ml 1700 Nutritional Problem No current Nutrition Prob Problem no nutrition diagnosis at this time Etiology n/a Signs/Symptoms: n/a Malnutrition Alert Protein-Calorie Malnutrition N/A Is there a minimum of two criteria No selected? Query Text:Check all the applicable criteria. A minimum of two criteria are recommended for diagnosis of either severe or non-severe malnutrition. Malnutrition Related to Morbid Obesity Malnutrition related to morbid obesity No Intervention/Recommendation Comments Continue JOSÉ, mechanical soft diet with Boost BID. Add daily MVI for variable intake. Expected Outcomes/Goals Expected Outcomes/Goals PO intake >50% Pt to consume at least 1 serving of supplement/day Wt stability Skin to remain intact Labs: WNL Physician Parameters for PEM Normal Weight % 90% - 110% (Normal) Body Mass Index (BMI) 19 - 24 (Normal)
--- NOTE | 2017-01-09 03:08 | Progress Notes ---
DATE: 01/08/2017 SUBJECTIVE: The patient seen, chart reviewed, discussed with staff. The patient coming from [employer], agitated, delusional, screaming, yelling, needing p.r.n. medications, banging the chair. Symptoms are still ongoing, still requiring a Dipika chair at times, calm at this time. Sleeping at this time, refusing to speak with me, but he appears to be quite confused, disoriented. Medications were reviewed. No overt side effects. ASSESSMENT: The patient is calm this morning, but still with impulsive and unpredictable and unruly behaviors. PLAN: We will continue to monitor given his ongoing symptoms, he is not safe for discharge. [facility]# [id number]
[2017-01-09] MEDS: Multivitamin w/ Minerals Tab PO SCH (09:25)
[2017-01-09] MEDS: Calcium Carb/Vit D 500 mg/200 U Tab PO SCH (09:26)
[2017-01-09] MEDS: Magnesium Hydroxide (MOM) 30 mL UDC PO PRN (10:26)
--- NOTE | 2017-01-09 18:25 | Internal Medicine Prog Note ---
Internal Medicine Subjective - Subjective Service Date: 01/09/17 Patient seen and examined:: without staff Patient is:: awake, in wheelchair, confused Per staff patient has:: no adverse event Internal Medicine Objective - Results Result Diagrams: 12/28/16 18:57 12/28/16 18:57 Recent Labs: Laboratory Last Values WBC 6.2 Th/cmm (4.8-10.8) 12/28/16 18:57 RBC 3.72 Mil/cmm (3.80-5.80) L 12/28/16 18:57 Hgb 10.8 gm/dL (12-16) L 12/28/16 18:57 Hct 32.6 % (41.0-60) L 12/28/16 18:57 MCV 87.4 fl (80-99) 12/28/16 18:57 MCH 29.0 pg (27.0-31.0) 12/28/16 18:57 MCHC Differential 33.2 pg (28.0-36.0) 12/28/16 18:57 RDW 13.4 % (11.5-20.0) 12/28/16 18:57 Plt Count 229 Th/cmm (150-400) 12/28/16 18:57 MPV 7.5 fl 12/28/16 18:57 Neutrophils % 71.4 % (40.0-80.0) 12/28/16 18:57 Lymphocytes % 15.1 % (20.0-50.0) L 12/28/16 18:57 Monocytes % 10.3 % (2.0-10.0) H 12/28/16 18:57 Eosinophils % 3.0 % (0.0-5.0) 12/28/16 18:57 Basophils % 0.2 % (0.0-2.0) 12/28/16 18:57 Sodium 134 mEq/L (136-145) L 12/28/16 18:57 Potassium 4.0 mEq/L (3.5-5.1) 12/28/16 18:57 Chloride 101 mEq/L (98-107) 12/28/16 18:57 Carbon Dioxide 27.8 mEq/L (21.0-31.0) 12/28/16 18:57 Anion Gap 9.2 (7.0-16.0) 12/28/16 18:57 BUN 24 mg/dL (7-25) 17 18:57 Creatinine 0.9 mg/dL (0.7-1.3) 12/28/16 18:57 Est GFR ( Amer) TNP 12/28/16 18:57 Est GFR (Non-Af Amer) TNP 12/28/16 18:57 BUN/Creatinine Ratio 26.7 12/28/16 18:57 Glucose 106 mg/dL (70-105) H 12/28/16 18:57 Hemoglobin A1c % 5.6 % (4.0-6.0) 12/28/16 18:57 Calcium 8.9 mg/dL (8.6-10.3) 12/28/16 18:57 Total Bilirubin 0.4 mg/dL (0.3-1.0) 12/28/16 18:57 AST 17 U/L (13-39) 12/28/16 18:57 ALT 10 U/L (7-52) 12/28/16 18:57 Alkaline Phosphatase 78 U/L (34-104) 12/28/16 18:57 Total Protein 6.9 gm/dL (6.0-8.3) 12/28/16 18:57 Albumin 3.7 gm/dL (4.2-5.5) L 12/28/16 18:57 Globulin 3.2 gm/dL 18 18:57 Albumin/Globulin Ratio 1.2 (1.0-1.8) 18 18:57 Triglycerides 58 mg/dL (<150) 12/28/16 18:57 Cholesterol 128 mg/dL (<200) 1817 18:57 LDL Cholesterol Direct 73 mg/dL (75-193) L 1817 18:57 HDL Cholesterol 46 mg/dL (23-92) 18 18:57 TSH 1.98 uIU/ml (0.34-5.60) 18 18:57 Urine Source CLEAN C 12/28/16 19:56 Urine Color YELLOW 12/28/16 19:56 Urine Clarity CLEAR (CLEAR) 12/28/16 19:56 Urine pH 6.0 (4.6 - 8.0) 12/28/16 19:56 Ur Specific [place] 1.015 (1.005-1.030) 12/28/16 19:56 Urine Protein NEGATIVE mg/dL (NEGATIVE) 12/28/16 19:56 Urine Glucose (UA) NEGATIVE mg/dL (NEGATIVE) 12/28/16 19:56 Urine Ketones NEGATIVE mg/dL (NEGATIVE) 12/28/16 19:56 Urine Blood NEGATIVE (NEGATIVE) 12/28/16 19:56 Urine Nitrate NEGATIVE (NEGATIVE) 12/28/16 19:56 Urine Bilirubin NEGATIVE (NEGATIVE) 12/28/16 19:56 Urine Urobilinogen 0.2 E.U./dL (0.2 - 1.0) 12/28/16 19:56 Ur Leukocyte Esterase NEGATIVE (NEGATIVE) 12/28/16 19:56 Urine RBC 0-2 /hpf (0-5) H 12/28/16 19:56 Urine WBC 0-2 /hpf (0-5) 12/28/16 19:56 Ur Epithelial Cells OCCASIONAL /lpf (FEW) 12/28/16 19:56 Urine Bacteria FEW /hpf (NONE SEEN) 12/28/16 19:56 Salicylates < 25.0 mg/L (30.0-100.0) L 12/28/16 18:57 Urine Opiates Screen NEGATIVE (NEGATIVE) 12/28/16 19:56 Urine Methadone Screen NEGATIVE (NEGATIVE) 12/28/16 19:56 Acetaminophen < 10.0 ug/mL (10.0-30.0) L 12/28/16 18:57 Ur Barbiturates Screen NEGATIVE (NEGATIVE) 12/28/16 19:56 Ur Tricyclics Screen NEGATIVE (NEGATIVE) 12/28/16 19:56 Ur Phencyclidine Scrn NEGATIVE (NEGATIVE) 12/28/16 19:56 Amphetamines Screen NEGATIVE (NEGATIVE) 12/28/16 19:56 U Methamphetamines Scrn NEGATIVE (NEGATIVE) 12/28/16 19:56 U Benzodiazepines Scrn NEGATIVE (NEGATIVE) 12/28/16 19:56 U Cocaine Metab Screen NEGATIVE (NEGATIVE) 12/28/16 19:56 U Cannabinoids Screen NEGATIVE (NEGATIVE) 12/28/16 19:56 Ethyl Alcohol < 10 mg/dL (0-10) 12/28/16 18:57 RPR NONREACTIVE (NONREACTIVE) 12/28/16 18:57 - Physical Exam Vitals and I&O: Vital Signs Temp 97.4 F 01/09/17 15:22 Pulse 92 01/09/17 15:22 Resp 19 01/09/17 15:22 BP 101/64 01/09/17 15:22 Pulse Ox 95 01/09/17 15:22 Intake & Output 01/08/17 01/09/17 01/09/17 18:59 06:59 18:59 Intake Total 1521 591 5203 Balance 9873 723 4512 Intake: Oral 8998 449 8894 Other: # Voids 1 4 # Bowel Movements 1 0 0 Stool Characteristics Formed Formed Hard Hard Active Medications: Current Medications Acetaminophen (Tylenol) 650 mg PO Q4HR PRN PRN Reason: Pain (Mild) Stop: 02/27/17 17:47 Last Admin: 01/08/17 09:59 Dose: 650 mg Al Hydrox/Mg Hydrox/Simethicone (Maalox) 30 ml PO Q6H PRN PRN Reason: Dyspepsia Stop: 02/26/17 21:40 Last Admin: 01/08/17 09:59 Dose: 30 ml Albuterol Sulfate (Albuterol 2.5mg/3ml Neb Ud) 2.5 mg HHN Q6H PRN PRN Reason: Cough Stop: 03/09/17 16:42 Last Admin: 01/08/17 18:34 Dose: 2.5 mg Calcium/Vitamin D (Oscal W/Vitamin D) 1 tab PO DAILY ISABEL Stop: 02/27/17 08:59 Last Admin: 01/09/17 09:26 Dose: 1 tab Cholecalciferol (Vitamin D3) 1,000 iu PO DAILY ISABEL Stop: 02/27/17 08:59 Last Admin: 01/09/17 09:26 Dose: 1,000 iu Docusate Sodium (Colace) 100 mg PO DAILY ISABEL Stop: 02/27/17 08:59 Last Admin: 01/09/17 09:25 Dose: 100 mg Donepezil HCl (Aricept) 5 mg PO HS ISABEL Stop: 02/27/17 20:59 Last Admin: 01/08/17 21:12 Dose: 5 mg Lorazepam (Ativan) 1 mg PO Q6HR PRN PRN Reason: Agitation Stop: 03/04/17 12:30 Last Admin: 01/09/17 09:27 Dose: 1 mg Magnesium Hydroxide (Milk Of Magnesia) 30 ml PO HS PRN PRN Reason: Constipation Stop: 02/26/17 21:40 Last Admin: 01/09/17 10:26 Dose: 30 ml Megestrol Acetate (Megace) 400 mg PO BID ISABEL PRN Reason: Protocol Stop: 02/28/17 08:59 Last Admin: 01/09/17 17:28 Dose: 400 mg Memantine (Namenda) 5 mg PO BID ISABEL Stop: 03/10/17 16:59 Last Admin: 01/09/17 17:28 Dose: 5 mg Risperidone (Risperdal) 0.5 mg PO BID ISABEL PRN Reason: Protocol Stop: 03/03/17 12:41 Last Admin: 01/09/17 17:28 Dose: 0.5 mg Zolpidem Tartrate (Ambien) 5 mg PO HS PRN PRN Reason: Insomnia Stop: 02/26/17 21:40 Last Admin: 01/08/17 21:12 Dose: 5 mg General: demented HEENT: NC/AT, PERRLA, EOMI, anicteric sclerae, throat clear Neck: Supple, No JVD, No thyromegaly, +2 carotid pulse wo bruit, No LAD Lungs: CTAB Cardiovascular: RRR, Normal S1, Normal S2, without murmur Abdomen: soft, non-tender, non-distended Extremities: clear Neurological: no change Internal Medicine Assmt/Plan - Assessment Assessment: 1.ANEMIA 2.DJD. 3.CONSTIPATION. 4.DEMENTIA. - Plan Plan: CONTINUE ON CURRENT MEDICATION AND DIET. Nutritional Asmnt/Malnutr-PDOC - Dietary Evaluation Malnutrition Findings (Please click <Entered> for more info): Nutritional Asmnt/Malnutrition Start: 01/02/17 11: 56 Text: Status: Complete Freq: Document 01/02/17 11:56 [email or web address] (Rec: 01/02/17 12:10 [email or web address]) Nutritional Asmnt/Malnutrition Patient General Information Nutritional Screening Moderate Risk Screening Diagnosis psychosis Pertinent Medical Hx/Surgical Hx dementia, degenerative joint disease, anemia, legally blind Subjective Information Pt is very demented, inappropriate for interview. Per H&P, pt was not eating much [employer], but now is eating 75 % of meals with total assist. Current Diet Order/ Nutrition Support JOSÉ, mechanical soft, ground. Boost BID. Patient / S.O Not Indicated Pertinent Medications calcium, vitamin d, megace Pertinent Labs 01/02: Na: 134, glucose: 106, hgbac1: 5.6 Nutritional Hx/Data Height 1.75 m Height (Calculated Centimeters) 175.3 Current Weight (lbs) 68.039 kg Weight (Calculated Kilograms) 68.0 Weight (Calculated Grams) 84848.9 [place] Body Weight 160 lbs % [place] Body Weight 94 Weight Status Approriate GI Symptoms GI Symptoms Constipation Difficult in: Chewing Food Allergies No Skin Integrity/Comment: intact Current %PO Fair (50-74%) Estimated Nutritional Goals BEE in Kcals: Using Current wt Calories/Kcals/Kg 25-30 Kcals Calculated 0994-5554 Protein: Using Current wt Protein g/k Protein Calculated 68 Fluid: ml 1700 Nutritional Problem No current Nutrition Prob Problem no nutrition diagnosis at this time Etiology n/a Signs/Symptoms: n/a Malnutrition Alert Protein-Calorie Malnutrition N/A Is there a minimum of two criteria No selected? Query Text:Check all the applicable criteria. A minimum of two criteria are recommended for diagnosis of either severe or non-severe malnutrition. Malnutrition Related to Morbid Obesity Malnutrition related to morbid obesity No Intervention/Recommendation Comments Continue JOSÉ, mechanical soft diet with Boost BID. Add daily MVI for variable intake. Expected Outcomes/Goals Expected Outcomes/Goals PO intake >50% Pt to consume at least 1 serving of supplement/day Wt stability Skin to remain intact Labs: WNL Physician Parameters for PEM Normal Weight % 90% - 110% (Normal) Body Mass Index (BMI) 19 - 24 (Normal)
--- NOTE | 2017-01-09 22:30 | Progress Notes ---
DATE: 01/09/2017 Case was discussed with staff of the patient, reviewed records. The patient continues to be unpredictable, impulsive, and needing redirection. Continues to have poor insight. Continues to need help with his ADLs. I will be increasing his Namenda to 5 mg twice a day and so far no side effects, no sedation, no nausea, and no extrapyramidal symptoms. We will continue to work with the patient in group therapy, milieu therapy, adjust medication as needed. JOB# [id number]
[2017-01-10] MEDS: Multivitamin w/ Minerals Tab PO SCH (10:44)
[2017-01-10] MEDS: Calcium Carb/Vit D 500 mg/200 U Tab PO SCH (10:45)
--- NOTE | 2017-01-10 20:15 | Internal Medicine Prog Note ---
Internal Medicine Subjective - Subjective Service Date: 01/10/17 Patient seen and examined:: without staff Patient is:: awake, in wheelchair, confused Per staff patient has:: no adverse event Internal Medicine Objective - Results Result Diagrams: 12/28/16 18:57 12/28/16 18:57 Recent Labs: Laboratory Last Values WBC 6.2 Th/cmm (4.8-10.8) 12/28/16 18:57 RBC 3.72 Mil/cmm (3.80-5.80) L 12/28/16 18:57 Hgb 10.8 gm/dL (12-16) L 12/28/16 18:57 Hct 32.6 % (41.0-60) L 12/28/16 18:57 MCV 87.4 fl (80-99) 12/28/16 18:57 MCH 29.0 pg (27.0-31.0) 12/28/16 18:57 MCHC Differential 33.2 pg (28.0-36.0) 12/28/16 18:57 RDW 13.4 % (11.5-20.0) 12/28/16 18:57 Plt Count 229 Th/cmm (150-400) 12/28/16 18:57 MPV 7.5 fl 12/28/16 18:57 Neutrophils % 71.4 % (40.0-80.0) 12/28/16 18:57 Lymphocytes % 15.1 % (20.0-50.0) L 12/28/16 18:57 Monocytes % 10.3 % (2.0-10.0) H 12/28/16 18:57 Eosinophils % 3.0 % (0.0-5.0) 12/28/16 18:57 Basophils % 0.2 % (0.0-2.0) 12/28/16 18:57 Sodium 134 mEq/L (136-145) L 12/28/16 18:57 Potassium 4.0 mEq/L (3.5-5.1) 12/28/16 18:57 Chloride 101 mEq/L (98-107) 12/28/16 18:57 Carbon Dioxide 27.8 mEq/L (21.0-31.0) 12/28/16 18:57 Anion Gap 9.2 (7.0-16.0) 12/28/16 18:57 BUN 24 mg/dL (7-25) 17 18:57 Creatinine 0.9 mg/dL (0.7-1.3) 12/28/16 18:57 Est GFR ( Amer) TNP 12/28/16 18:57 Est GFR (Non-Af Amer) TNP 12/28/16 18:57 BUN/Creatinine Ratio 26.7 12/28/16 18:57 Glucose 106 mg/dL (70-105) H 12/28/16 18:57 Hemoglobin A1c % 5.6 % (4.0-6.0) 12/28/16 18:57 Calcium 8.9 mg/dL (8.6-10.3) 12/28/16 18:57 Total Bilirubin 0.4 mg/dL (0.3-1.0) 12/28/16 18:57 AST 17 U/L (13-39) 12/28/16 18:57 ALT 10 U/L (7-52) 12/28/16 18:57 Alkaline Phosphatase 78 U/L (34-104) 12/28/16 18:57 Total Protein 6.9 gm/dL (6.0-8.3) 12/28/16 18:57 Albumin 3.7 gm/dL (4.2-5.5) L 12/28/16 18:57 Globulin 3.2 gm/dL 18 18:57 Albumin/Globulin Ratio 1.2 (1.0-1.8) 18 18:57 Triglycerides 58 mg/dL (<150) 12/28/16 18:57 Cholesterol 128 mg/dL (<200) 1817 18:57 LDL Cholesterol Direct 73 mg/dL (75-193) L 1817 18:57 HDL Cholesterol 46 mg/dL (23-92) 18 18:57 TSH 1.98 uIU/ml (0.34-5.60) 18 18:57 Urine Source CLEAN C 12/28/16 19:56 Urine Color YELLOW 12/28/16 19:56 Urine Clarity CLEAR (CLEAR) 12/28/16 19:56 Urine pH 6.0 (4.6 - 8.0) 12/28/16 19:56 Ur Specific [place] 1.015 (1.005-1.030) 12/28/16 19:56 Urine Protein NEGATIVE mg/dL (NEGATIVE) 12/28/16 19:56 Urine Glucose (UA) NEGATIVE mg/dL (NEGATIVE) 12/28/16 19:56 Urine Ketones NEGATIVE mg/dL (NEGATIVE) 12/28/16 19:56 Urine Blood NEGATIVE (NEGATIVE) 12/28/16 19:56 Urine Nitrate NEGATIVE (NEGATIVE) 12/28/16 19:56 Urine Bilirubin NEGATIVE (NEGATIVE) 12/28/16 19:56 Urine Urobilinogen 0.2 E.U./dL (0.2 - 1.0) 12/28/16 19:56 Ur Leukocyte Esterase NEGATIVE (NEGATIVE) 12/28/16 19:56 Urine RBC 0-2 /hpf (0-5) H 12/28/16 19:56 Urine WBC 0-2 /hpf (0-5) 12/28/16 19:56 Ur Epithelial Cells OCCASIONAL /lpf (FEW) 12/28/16 19:56 Urine Bacteria FEW /hpf (NONE SEEN) 12/28/16 19:56 Salicylates < 25.0 mg/L (30.0-100.0) L 12/28/16 18:57 Urine Opiates Screen NEGATIVE (NEGATIVE) 12/28/16 19:56 Urine Methadone Screen NEGATIVE (NEGATIVE) 12/28/16 19:56 Acetaminophen < 10.0 ug/mL (10.0-30.0) L 12/28/16 18:57 Ur Barbiturates Screen NEGATIVE (NEGATIVE) 12/28/16 19:56 Ur Tricyclics Screen NEGATIVE (NEGATIVE) 12/28/16 19:56 Ur Phencyclidine Scrn NEGATIVE (NEGATIVE) 12/28/16 19:56 Amphetamines Screen NEGATIVE (NEGATIVE) 12/28/16 19:56 U Methamphetamines Scrn NEGATIVE (NEGATIVE) 12/28/16 19:56 U Benzodiazepines Scrn NEGATIVE (NEGATIVE) 12/28/16 19:56 U Cocaine Metab Screen NEGATIVE (NEGATIVE) 12/28/16 19:56 U Cannabinoids Screen NEGATIVE (NEGATIVE) 12/28/16 19:56 Ethyl Alcohol < 10 mg/dL (0-10) 12/28/16 18:57 RPR NONREACTIVE (NONREACTIVE) 12/28/16 18:57 - Physical Exam Vitals and I&O: Vital Signs Temp 97.8 F 01/10/17 14:00 Pulse 67 01/10/17 19:05 Resp 20 01/10/17 19:05 BP 126/71 01/10/17 14:00 Pulse Ox 95 01/10/17 19:05 Intake & Output 01/10/17 01/10/17 01/11/17 06:59 18:59 06:59 Intake Total 180 700 Balance 180 700 Intake: Oral 180 700 Other: # Voids 2 3 # Bowel Movements 0 0 Active Medications: Current Medications Acetaminophen (Tylenol) 650 mg PO Q4HR PRN PRN Reason: Pain (Mild) Stop: 02/27/17 17:47 Last Admin: 01/08/17 09:59 Dose: 650 mg Al Hydrox/Mg Hydrox/Simethicone (Maalox) 30 ml PO Q6H PRN PRN Reason: Dyspepsia Stop: 02/26/17 21:40 Last Admin: 01/08/17 09:59 Dose: 30 ml Albuterol Sulfate (Albuterol 2.5mg/3ml Neb Ud) 2.5 mg HHN Q6H PRN PRN Reason: Cough Stop: 03/09/17 16:42 Last Admin: 01/08/17 18:34 Dose: 2.5 mg Calcium/Vitamin D (Oscal W/Vitamin D) 1 tab PO DAILY ISABEL Stop: 02/27/17 08:59 Last Admin: 01/10/17 10:45 Dose: 1 tab Cholecalciferol (Vitamin D3) 1,000 iu PO DAILY ISABEL Stop: 02/27/17 08:59 Last Admin: 01/10/17 10:45 Dose: 1,000 iu Docusate Sodium (Colace) 100 mg PO DAILY ISABEL Stop: 02/27/17 08:59 Last Admin: 01/10/17 10:45 Dose: 100 mg Donepezil HCl (Aricept) 5 mg PO HS ISABEL Stop: 02/27/17 20:59 Last Admin: 01/09/17 20:23 Dose: 5 mg Lorazepam (Ativan) 1 mg PO Q6HR PRN PRN Reason: Agitation Stop: 03/04/17 12:30 Last Admin: 01/09/17 09:27 Dose: 1 mg Magnesium Hydroxide (Milk Of Magnesia) 30 ml PO HS PRN PRN Reason: Constipation Stop: 02/26/17 21:40 Last Admin: 01/09/17 10:26 Dose: 30 ml Megestrol Acetate (Megace) 400 mg PO BID ISABEL PRN Reason: Protocol Stop: 02/28/17 08:59 Last Admin: 01/10/17 17:52 Dose: 400 mg Memantine (Namenda) 5 mg PO BID ISABEL Stop: 03/10/17 16:59 Last Admin: 01/10/17 17:53 Dose: 5 mg Risperidone (Risperdal) 0.5 mg PO BID ISABEL PRN Reason: Protocol Stop: 03/03/17 12:41 Last Admin: 01/10/17 17:52 Dose: 0.5 mg Zolpidem Tartrate (Ambien) 5 mg PO HS PRN PRN Reason: Insomnia Stop: 02/26/17 21:40 Last Admin: 01/09/17 20:23 Dose: 5 mg General: demented HEENT: NC/AT, PERRLA, EOMI, anicteric sclerae, throat clear Neck: Supple, No JVD, No thyromegaly, +2 carotid pulse wo bruit, No LAD Lungs: CTAB Cardiovascular: RRR, Normal S1, Normal S2, without murmur Abdomen: soft, non-tender, non-distended Extremities: clear Neurological: no change Internal Medicine Assmt/Plan - Assessment Assessment: 1.ANEMIA 2.DJD. 3.CONSTIPATION. 4.DEMENTIA. - Plan Plan: CONTINUE ON CURRENT MEDICATION AND DIET. Nutritional Asmnt/Malnutr-PDOC - Dietary Evaluation Malnutrition Findings (Please click <Entered> for more info): Nutritional Asmnt/Malnutrition Start: 01/02/17 11: 56 Text: Status: Complete Freq: Document 01/02/17 11:56 [email or web address] (Rec: 01/02/17 12:10 [email or web address]) Nutritional Asmnt/Malnutrition Patient General Information Nutritional Screening Moderate Risk Screening Diagnosis psychosis Pertinent Medical Hx/Surgical Hx dementia, degenerative joint disease, anemia, legally blind Subjective Information Pt is very demented, inappropriate for interview. Per H&P, pt was not eating much [employer], but now is eating 75 % of meals with total assist. Current Diet Order/ Nutrition Support JOSÉ, mechanical soft, ground. Boost BID. Patient / S.O Not Indicated Pertinent Medications calcium, vitamin d, megace Pertinent Labs 01/02: Na: 134, glucose: 106, hgbac1: 5.6 Nutritional Hx/Data Height 1.75 m Height (Calculated Centimeters) 175.3 Current Weight (lbs) 68.039 kg Weight (Calculated Kilograms) 68.0 Weight (Calculated Grams) 78982.9 Hope Body Weight 160 lbs % Hope Body Weight 94 Weight Status Approriate GI Symptoms GI Symptoms Constipation Difficult in: Chewing Food Allergies No Skin Integrity/Comment: intact Current %PO Fair (50-74%) Estimated Nutritional Goals BEE in Kcals: Using Current wt Calories/Kcals/Kg 25-30 Kcals Calculated 8737-0690 Protein: Using Current wt Protein g/k Protein Calculated 68 Fluid: ml 1700 Nutritional Problem No current Nutrition Prob Problem no nutrition diagnosis at this time Etiology n/a Signs/Symptoms: n/a Malnutrition Alert Protein-Calorie Malnutrition N/A Is there a minimum of two criteria No selected? Query Text:Check all the applicable criteria. A minimum of two criteria are recommended for diagnosis of either severe or non-severe malnutrition. Malnutrition Related to Morbid Obesity Malnutrition related to morbid obesity No Intervention/Recommendation Comments Continue JOSÉ, mechanical soft diet with Boost BID. Add daily MVI for variable intake. Expected Outcomes/Goals Expected Outcomes/Goals PO intake >50% Pt to consume at least 1 serving of supplement/day Wt stability Skin to remain intact Labs: WNL Physician Parameters for PEM Normal Weight % 90% - 110% (Normal) Body Mass Index (BMI) 19 - 24 (Normal)
--- NOTE | 2017-01-11 02:05 | Progress Notes ---
DATE: 01/10/2017 Case was discussed with staff of the patient, reviewed records. The patient continues to be demented, confused. The dementia is not going to improve. He continues to have episodes of agitation, unpredictable, impulsive, needing redirection. He is sleeping well, eating well. He is compliant with the medication with no side effects, no sedation, no nausea, no extrapyramidal symptoms. We will continue to work with the patient in group therapy, milieu therapy, and adjust medications as needed. JOB# [id number]
[2017-01-11] MEDS: Multivitamin w/ Minerals Tab PO SCH (08:44)
[2017-01-11] MEDS: Calcium Carb/Vit D 500 mg/200 U Tab PO SCH (08:44)
--- NOTE | 2017-01-11 09:12 | Discharge Summary ---
DATE OF DISCHARGE: 01/11/2017 DATE OF DISCHARGE: 01/11/2017. IDENTIFYING INFORMATION: The patient is an 86-year-old male. HISTORY OF PRESENT ILLNESS: The patient was referred from [place] because of agitation. He is well known to me as I have been seeing him at [place] for the past 2 months. He has been agitated, delusional, screaming and yelling. He had to be medicated upon admission, using all kind of curse and bad words, very agitated, hard to redirect, very poor historian, demented, confused and unable to participate in meaningful conversation. Diagnosed with dementia. COURSE IN THE HOSPITAL: The patient was continued on medication prior to admission. The patient was initiated on Aricept 5 mg at bedtime, Namenda was initiated at 5 mg, increased to twice a day, also initiated Risperdal because of agitation beginning at 0.25 mg twice daily increased to 0.5 mg twice a day because of agitation, progressively the patient got better. He was sleeping well, eating well. Ativan did help and he was getting 1 mg every 6 hours. He would start yelling and screaming when it wears off, but that improve towards the end. The patient was stable. He was no longer acting out or yelling and cursing or causing any management problem, so he could be discharged to a lesser level of care. FINAL DIAGNOSES: 1. Mood disorder, not otherwise specified. 2. Dementia. MEDICAL DIAGNOSIS: Deferred to the medical doctor. The patient will go back to [place] expected, will follow up with the patient as well as his primary care physician, Dr. Stewart. EXPECTED OUTCOME: Stable if the patient complies with the above. JOB# [id number]
== END 2017-01-11 14:15 | disposition home or self-care (01) | DRG 885 ==
LOC: ER 18:23 → GERO 20:05
PROVIDERS: ADMIT Psychiatry & Neurology Psychiatry; ATTEND Psychiatry & Neurology Psychiatry
DX: F39 Unspecified mood [affective] disorder (principal); F03.90 Unspecified dementia, unspecified severity, without behavioral disturbance, psychotic disturbance, mood disturbance, and anxiety; D64.9 Anemia, unspecified; F29 Unspecified psychosis not due to a substance or known physiological condition; J44.9 Chronic obstructive pulmonary disease, unspecified; M19.90 Unspecified osteoarthritis, unspecified site; K59.09 Other constipation; I10 Essential (primary) hypertension; E78.5 Hyperlipidemia, unspecified; Z83.3 Family history of diabetes mellitus; Z82.49 Family history of ischemic heart disease and other diseases of the circulatory system
CPT/HCPCS: 36415-UA; 80053-TC; 80061-TC; 80307; 80320-TC; 80329-TC; 81001-TC; 83036-90; 84443-TC; 85025-TC; 86592-TC; 93005; 94760; J2060; J7613; Z7610